=== PATIENT | female | born 1950 | race Two or more races ===

== ENCOUNTER 2021-12-21 20:50 | Inpatient (IN) | payer MEDICARE, OTHER ==
[~2021-12-21] VITALS: Ht 160 cm; Wt 103.4 kg
--- NOTE | 2021-12-21 20:55 | NUR ---
SAIRA Kelly FROM HOME FOR C/O "I FEEL TIRED". PATIENT BROUGHT TO BED 07 AWAITING MD MORALES. PATIENT PLACED ON MONITOR AND POX.
--- NOTE | 2021-12-21 21:09 | NUR ---
CYBER TRANSPORT SYSTEMS SPECIALIST AT PT'S BEDSIDE
--- NOTE | 2021-12-21 21:24 | NUR ---
[facility] [phone].
--- NOTE | 2021-12-21 21:29 | NUR ---
URINE COLLECTED AND SENT TO LAB
--- NOTE | 2021-12-21 21:29 | NUR ---
BLOOD COLLECTED AND SENT TO LAB
--- NOTE | 2021-12-21 21:30 | NUR ---
BS 107
--- NOTE | 2021-12-21 21:30 | NUR ---
COVID ANTIGEN SWAB DONE AND SENT TO LAB
--- NOTE | 2021-12-21 21:30 | NUR ---
LAC #20G S/L PATENT AND INTACT
--- NOTE | 2021-12-21 21:30 | NUR ---
EMT @ BEDSIDE FOR EKG
[2021-12-21 21:48] LABS: BASOPHILS % (AUTO) 0.6 % (0.0-2.0); HEMATOCRIT 47 % (33-45); HEMOGLOBIN 14.6 g/dL (11.5-14.8); LYMPHOCYTES % (AUTO) 33.4 % (20.0-44.0); MEAN CORPUSCULAR HGB CONC 31 g/dl (31.0-36.0); MEAN CORPUSCULAR VOLUME 87 fL (82-100); MONOCYTES # (AUTO) 0.3 K/uL (0.1-1.30); MONOCYTES % (AUTO) 4.9 % (2.0-12.0); NEUTROPHILS # (AUTO) 3.6 K/uL (1.8-8.9); NEUTROPHILS % (AUTO) 60.1 % (43.0-81.0); PLATELET COUNT (AUTO) 226 K/uL (150-450); RED BLOOD CELL COUNT(AUTO) 5.41 MIL/uL (4.0-5.2); WHITE BLOOD COUNT (AUTO) 6.1 K/uL (4.3-11.0)
[2021-12-21 22:16] LABS: ALANINE AMINOTRANSFERASE 40 U/L (12-78); ALBUMIN 3.7 g/dL (3.4-5.0); ALKALINE PHOSPHATASE 92 U/L (46-116); ASPARTATE AMINOTRANSFERASE 38 U/L (15-37); BILIRUBIN,DIRECT 0.4 mg/dL (0.0-0.2); BILIRUBIN,TOTAL 1.3 mg/dL (0.2-1.0); CALCIUM, SERUM 8.7 mg/dL (8.5-10.1); CARBON DIOXIDE 27 mmol/L (21-32); CHLORIDE 101 mmol/L (98-107); CREATININE 1.2 mg/dL (0.6-1.3); GLUCOSE 106 mg/dL (74-106); POTASSIUM 3.2 mmol/L (3.5-5.1); SODIUM SERUM 137 mmol/L (136-145); TOTAL PROTEIN, SERUM 8.1 g/dL (6.4-8.2); UREA NITROGEN, BLOOD 17 mg/dL (7-18)
--- NOTE | 2021-12-21 22:26 | NUR ---
YASH [phone]
--- NOTE | 2021-12-21 22:29 | NUR ---
TROPONIN 2074; NOTIFIED DR. MASON POLO
--- NOTE | 2021-12-21 22:35 | NUR ---
DR. CUEVAS SPEAKING TO DR. LEE
--- NOTE | 2021-12-21 22:37 | NUR ---
[facility] PAGED
--- NOTE | 2021-12-21 22:39 | NUR ---
UPDATED YSAH (NIECE) ON PT'S CONDITION. PER YASH PT DOES NOT TAKE ANY HOME MEDICATIONS
[2021-12-21] MEDS ORDERED: ASPIRIN EC 325 MG TABLET.DR PO ONE (22:43)
--- NOTE | 2021-12-21 22:53 | NUR ---
ADLS DONE. PT AMBULATORY TO RESTROOM WITH ASSIST
[2021-12-21] MEDS ORDERED: ASPIRIN 81 MG TAB.CHEW PO ONE (23:00)
[2021-12-21] MEDS ORDERED: ENOXAPARIN SODIUM 80 MG/0.8 ML DISP.SYRIN SQ ONE (23:00)
--- NOTE | 2021-12-21 23:05 | NUR ---
MRSA SWAB COLLECTED AND SENT TO LAB. PATIENT'S BELONGINGS LIST DONE.
--- NOTE | 2021-12-21 23:29 | NUR ---
BED ASSIGNMENT: 310-1
--- NOTE | 2021-12-21 23:36 | NUR ---
REPORT GIVEN TO DEANDRE Waddell RN FOR DONTRELL
--- NOTE | 2021-12-21 23:55 | NUR ---
PT TRANSFERRED TO 3W VIA ACLS PROTOCOL. VSS. PT TOLERATED TRANSFER WELL. YASH GRIGGS) AWARE.
--- NOTE | 2021-12-21 23:57 | NUR ---
RN notes Received a critical lab from preston Silva. Pt's Troponin I is 1878. Primary nurse is aware and informed.
[2021-12-22] VITALS (10 sets, daily range): BP systolic 98–145; BP diastolic 50–80
[2021-12-22] MEDS ORDERED: Z GUARD REMEDY 4 OZ OINT TP PRN
[2021-12-22] MEDS ORDERED: ACETAMINOPHEN 325 MG TABLET PO PRN
[2021-12-22] MEDS ORDERED: MAG HYDROX/AL HYDROX/SIMETH 30 ML UDC PO PRN
[2021-12-22] MEDS ORDERED: MORPHINE SULFATE INJ 2 MG/ML DISP.SYRIN IV PRN
[2021-12-22] MEDS ORDERED: MAGNESIUM HYDROXIDE 30 ML UDC PO PRN
[2021-12-22] MEDS ORDERED: HYDROCODONE/APAP 5/325MG TABLET PO PRN
[2021-12-22] MEDS ORDERED: ONDANSETRON HCL/PF 4 MG/2 ML VIAL IVP PRN
[2021-12-22] MEDS ORDERED: ZOLPIDEM TARTRATE 5 MG TABLET PO PRN
--- NOTE | 2021-12-22 | NUR ---
AUTOMATION TEST DEVELOPER ADMITTING NOTES PT ARRIVED TO UNIT VIA GURNEY PT ABLE TO AMBULATE TO BED PT NOTED WITH STEADY GAIT PT PROVIDED WITH STAND BY ASSIST. PT A/O X3 ABLE TO MAKE NEEDS KNOWN.ON ROOM AIR TOLERATING WELL. NO PAIN REPORTED OR NOTED AT THIS TIME NO RESPIRATORY DISTRESS. PT NOTED WITH IV ACCESS ON THE L ARM 20G SL. PT BELONGINGS CHECKED AND SIGNED FOR. PT PLACED ON TELE MONITOR CURRENTLY READING ST 100S. PT REFUSED SKIN ASSESSMENT AT THIS TIME. PER PT SHE DOES NOT HAVE WOUNDS OR SCARS. UPPER EXTREMITIES AND FEET DID NOT NOTE ANY SKIN DISCOLORATION OR WOUNDS. PT ORIENTED TO UNIT AND ROOM CALL LIGHT WITHIN REACH. TBLE WITHIN REACH. SNACKS AND WATER PROVIDED AT THIS TIME. WILL CONTINUE TO MONITOR.
--- NOTE | 2021-12-22 06:40 | NUR ---
METAL ANNEALER CLOSING NOTES PT A/O X3 ABLE TO MAKE NEEDS KNOWN.ON ROOM AIR TOLERATING WELL. NO PAIN REPORTED OR NOTED AT THIS TIME NO RESPIRATORY DISTRESS. PT NOTED WITH IV ACCESS ON THE L ARM 20G SL. PT PLACED ON TELE MONITOR CURRENTLY READING ST 100S. PT REFUSED SKIN ASSESSMENT AT THIS TIME. PER PT SHE DOES NOT HAVE WOUNDS OR SCARS. UPPER EXTREMITIES AND FEET DID NOT NOTE ANY SKIN DISCOLORATION OR WOUNDS. PT ORIENTED TO UNIT AND ROOM CALL LIGHT WITHIN REACH.TABLE WITHIN REACH. WILL ENDORSE CRAE TO DAY SHIFT NURSE.
[2021-12-22 07:32] LABS: BASOPHILS % (AUTO) 0.4 % (0.0-2.0); EOSINOPHILS % (AUTO) 0.9 % (0.0-6.0); HEMATOCRIT 43 % (33-45); HEMOGLOBIN 13.7 g/dL (11.5-14.8); LYMPHOCYTES # (AUTO) 1.3 K/uL (0.8-4.8); LYMPHOCYTES % (AUTO) 28.9 % (20.0-44.0); MEAN CORPUSCULAR HGB CONC 32 g/dl (31.0-36.0); MEAN CORPUSCULAR VOLUME 85 fL (82-100); MONOCYTES # (AUTO) 0.3 K/uL (0.1-1.30); MONOCYTES % (AUTO) 5.8 % (2.0-12.0); PLATELET COUNT (AUTO) 204 K/uL (150-450); RED BLOOD CELL COUNT(AUTO) 5.03 MIL/uL (4.0-5.2); WHITE BLOOD COUNT (AUTO) 4.7 K/uL (4.3-11.0)
--- NOTE | 2021-12-22 07:37 | NUR ---
RN OPENING NOTES PATIENT AWAKE, A/O X3. NO S/S OF PAIN NOTED AT THIS TIME. PATIENT ON ROOM AIR, NO DISTRESS OR SHORTNESS OF BREATH. IV ACCESS LAC #20G, INTACT, PATENT AND FLUSHING WELL. PATIENT ON EXTERNAL BOAT CARPENTER MECHANIC CURRENT READING OF S.T. AND HR OF 100. FALL AND SAFETY MEASURES IN PLACE, BED ALARM ON, BED IN LOW AND LOCK POSITION, CALL LIGHT AND TABLE WITHIN EASY REACH, SIDE RAILS UP X2. WILL CONTINUE TO MONITOR.
[2021-12-22 07:55] LABS: ALBUMIN 3.3 g/dL (3.4-5.0); BILIRUBIN,DIRECT 0.5 mg/dL (0.0-0.2); BILIRUBIN,TOTAL 1.5 mg/dL (0.2-1.0); CALCIUM, SERUM 8.6 mg/dL (8.5-10.1); CREATININE 1.1 mg/dL (0.6-1.3); MAGNESIUM 1.8 mg/dL (1.8-2.4); PHOSPHORUS 2.6 mg/dL (2.5-4.9); POTASSIUM 3.4 mmol/L (3.5-5.1); TOTAL PROTEIN, SERUM 7.3 g/dL (6.4-8.2)
[2021-12-22 09:17] LABS: THYROID STIMULATING HORMONE 2.167 uIU/mL (0.358-3.74)
[2021-12-22] MEDS: ENOXAPARIN SODIUM 100 MG/ML DISP.SYRIN SQ SCH ×2 (09:19→21:07)
[2021-12-22] MEDS: ATORVASTATIN 10 MG TABLET PO SCH (09:20)
[2021-12-22] MEDS: ASPIRIN 81 MG TAB.CHEW PO SCH (09:20)
[2021-12-22] MEDS: PANTOPRAZOLE 40 MG TABLET.DR PO SCH (09:21)
[2021-12-22] MEDS ORDERED: IV NS 0.9% 500 ML IV PRN (09:30)
[2021-12-22] MEDS ORDERED: METOPROLOL TARTRATE INJ 5 MG/5 ML AMPUL IVP PRN (09:30)
[2021-12-22] MEDS ORDERED: NITROGLYCERIN 0.4 MG/TAB BOTTLE SL ONE (09:30)
[2021-12-22] MEDS ORDERED: IV NS 0.9% 250 ML IV ONE (09:48)
[2021-12-22] MEDS ORDERED: CT SWABBABLE VALVE TRANS SET 1 EA INFUS.SET MC ONE (09:48)
[2021-12-22] MEDS ORDERED: IOHEXOL-350 100 ML VIAL IV ONE (09:48)
[2021-12-22] MEDS ORDERED: METOPROLOL TARTRATE INJ 5 MG/5 ML AMPUL ONE (10:10)
[2021-12-22] MEDS ORDERED: NITROGLYCERIN 0.4 MG/TAB BOTTLE ONE (10:11)
--- NOTE | 2021-12-22 10:44 | NUR ---
Patient refused CTCA exam at the moment. Pt, states that she doesn't feel good and doesn't want to do the exam. pt unable to follow directions, hold breath for 15 seconds and has a hard time holding still. ITA Montes De Oca notified.
[2021-12-22] MEDS ORDERED: POTASSIUM CHLORIDE 20 MEQ TAB.PRT.SR PO SCH (11:30)
[2021-12-22] MEDS: METOPROLOL TARTRATE 50 MG TABLET PO SCH ×2 (11:46→17:32)
--- NOTE | 2021-12-22 18:40 | NUR ---
RN CLOSING NOTES PATIENT AWAKE, A/O X3. NO S/S OF PAIN NOTED AT THIS TIME. PATIENT ON ROOM AIR, NO DISTRESS OR SHORTNESS OF BREATH. IV ACCESS LAC #20G, INTACT, PATENT AND FLUSHING WELL. PATIENT ON EXTERNAL SOAP MIXER CURRENT READING OF S.R. AND HR OF 76. ALL SCHEDULE MEDS ADMINISTERED. FALL AND SAFETY MEASURES IN PLACE, BED ALARM ON, BED IN LOW AND LOCK POSITION, CALL LIGHT AND TABLE WITHIN EASY REACH, SIDE RAILS UP X2. WILL ENDORSE TO SENIOR PHP WEB DEVELOPER.
--- NOTE | 2021-12-22 19:30 | NUR ---
HEATING PLANT SUPERINTENDENT NOTED RECEIVED IN ROOM,SITTING ON BEDSIDE CHAIR,WATCHING TV PROGRAM,BREATHING EVEN AND UNLABORED,SALINE LOCK LEFT AC INTACT AND PATENT.INSTRUCTED NPO POST MIDNIGHT FOR CT ANGIO HEART WITH 3D IMAGES.CONSENT ON CHART,AMBULATE WITH STEADY GAIT.CALL LIGHT IN REACH,NEEDS ANTICIPATED.
[2021-12-23] VITALS: BP_SYST 100; BP_SYST 129; BP_DIAS 58; BP_DIAS 70
--- NOTE | 2021-12-23 | NUR ---
DIAMOND SIZER NOTES REPORTED BY LAB,TROPONIN LEVEL RE CHECK WAS 1954,INCREASED FROM 1857 YESTERDAY,RESULT RELAYED TO DR PETERSEN,NO FURTHER ORDER NOTED.
[2021-12-23 04:00] VITALS: BP 116/84
[2021-12-23 05:00] VITALS: BP 116/84
[2021-12-23] MEDS: METOPROLOL TARTRATE 50 MG TABLET PO SCH ×4 (05:56→17:22)
--- NOTE | 2021-12-23 06:39 | NUR ---
CABLE SWAGER NOTES IN ROOM SITTING ON EDGE OF BED,STAYS MOST ON THE NIGHT SITTING ON CHAIR IN FRONT OF HER ROOM,KEPT NPO GOING FOR CT HEART WITH 3 D IMAGINGSALINE LOCK REMAINS PATENT ON LEFT AC.IN NO ACUTE DISTRESS.
[2021-12-23 06:45] LABS: BASOPHILS % (AUTO) 0.4 % (0.0-2.0); EOSINOPHILS % (AUTO) 0.2 % (0.0-6.0); HEMATOCRIT 44 % (33-45); HEMOGLOBIN 13.9 g/dL (11.5-14.8); LYMPHOCYTES # (AUTO) 2.3 K/uL (0.8-4.8); LYMPHOCYTES % (AUTO) 43.2 % (20.0-44.0); MEAN CORPUSCULAR HGB CONC 32 g/dl (31.0-36.0); MEAN CORPUSCULAR VOLUME 86 fL (82-100); MONOCYTES # (AUTO) 0.3 K/uL (0.1-1.30); MONOCYTES % (AUTO) 4.7 % (2.0-12.0); NEUTROPHILS # (AUTO) 2.8 K/uL (1.8-8.9); NEUTROPHILS % (AUTO) 51.5 % (43.0-81.0); PLATELET COUNT (AUTO) 223 K/uL (150-450); RED BLOOD CELL COUNT(AUTO) 5.11 MIL/uL (4.0-5.2); WHITE BLOOD COUNT (AUTO) 5.4 K/uL (4.3-11.0)
[2021-12-23 07:06] LABS: CALCIUM, SERUM 9.1 mg/dL (8.5-10.1); CREATININE 1.7 mg/dL (0.6-1.3); POTASSIUM 4.9 mmol/L (3.5-5.1)
--- NOTE | 2021-12-23 07:33 | NUR ---
RN OPENING NOTES PATIENT AWAKE SITTING ON THE BED, A/O X3. NO S/S OF PAIN NOTED AT THIS TIME. PATIENT ON ROOM AIR, NO DISTRESS OR SHORTNESS OF BREATH. IV ACCESS LAC #20G, INTACT, PATENT AND FLUSHING WELL. PATIENT ON EXTERNAL CHEF DE PARTIE CURRENT READING OF S.R. WITH BBB AND HR OF 71. FALL AND SAFETY MEASURES IN PLACE, BED ALARM ON, BED IN LOW AND LOCK POSITION, CALL LIGHT AND TABLE WITHIN EASY REACH, SIDE RAILS UP X2. WILL CONTINUE TO MONITOR. Addendum: 12/23/21 at 1807 by Falguni Sánchez RN PATIENT ON EXTERNAL CHEF DE PARTIE CURRENT READING OF S.R. AND HR OF 71.
[2021-12-23 08:00] VITALS: BP 121/83
[2021-12-23] MEDS: ENOXAPARIN SODIUM 100 MG/ML DISP.SYRIN SQ SCH ×2 (09:14→22:11)
[2021-12-23] MEDS: PANTOPRAZOLE 40 MG TABLET.DR PO SCH (09:15)
[2021-12-23] MEDS: ATORVASTATIN 10 MG TABLET PO SCH (09:15)
[2021-12-23] MEDS: ASPIRIN 81 MG TAB.CHEW PO SCH (09:16)
--- NOTE | 2021-12-23 12:00 | NUR ---
RN NOTES REPORTED BY LAB,TROPONIN LEVEL RE-CHECK WAS 1930, DECREASED FROM 1954 YESTERDAY LAB RESULT.
--- NOTE | 2021-12-23 15:58 | NUR ---
RN NOTE PHARMACY CALLED, SINCE PATIENT RENAL FUNCTION WORSENING, PATIENT LOVENOX WILL BE ON HOLD AFTER TODAY 2100 DOSE, UNLESS DOCTOR INSTRUCT OTHERWISE. WILL FOLLOW UP. CHARGE NURSE AWARE.
[2021-12-23 16:00] VITALS: BP 107/76
--- NOTE | 2021-12-23 18:50 | NUR ---
RN CLOSING NOTES PATIENT AWAKE SITTING ON THE CHAIR NEXT TO HER BED, A/O X3. NO S/S OF PAIN NOTED AT THIS TIME. PATIENT ON ROOM AIR, NO DISTRESS OR SHORTNESS OF BREATH. IV ACCESS LAC #20G, INTACT, PATENT AND FLUSHING WELL. PATIENT ON EXTERNAL MANAGER INFORMATION CURRENT READING OF S.R. AND HR OF 92. PATIENT GOT A LIFEVEST TODAY IS IN HER ROOM NEXT TO THE BEDSIDE TABLE. FALL AND SAFETY MEASURES IN PLACE, BED ALARM ON, BED IN LOW AND LOCK POSITION, CALL LIGHT AND TABLE WITHIN EASY REACH, SIDE RAILS UP X2. WILL ENDORSE TO CLIENT SOLUTIONS SPECIALIST NURSE.
--- NOTE | 2021-12-23 19:35 | NUR ---
RN NOTES RECEIVED PATIENT SITTING ON THE EDGE OF THE BED, A/OX3, SR WITH 1ST DEGREE AV BLOCK HR-67, DENIES PAIN, NO SOB, CALL LIGHT WITHIN REACH, SIDERAILSUPX2, WILL CONTINUE TO MONITOR
[2021-12-23 20:00] VITALS: BP 114/74
[2021-12-24] VITALS: BP 115/52
--- NOTE | 2021-12-24 | NUR ---
RN NOTES PATIENT REFUSED TO LIE DOWN ON HER BED PREFER TO SLEEP SITTING ON THE EDGE OF THE BED, ASKED PATIENT TO MOVE IN THE MIDDLE SO SHE WILL NOT FALL.
[2021-12-24] MEDS: METOPROLOL TARTRATE 50 MG TABLET PO SCH ×4 (00:08→18:00)
[2021-12-24 04:00] VITALS: BP 106/51
--- NOTE | 2021-12-24 06:42 | NUR ---
RN NOTES AWAKE, DENIES PAIN, NO SOB, MORNING CARE RENDERED, CALL LIGHT WITHIN REACH, SIDERAILSUPX2, PT. NEEDS ATTENDED
[2021-12-24 06:47] LABS: BASOPHILS % (AUTO) 0.8 % (0.0-2.0); EOSINOPHILS % (AUTO) 0.3 % (0.0-6.0); HEMATOCRIT 50 % (33-45); HEMOGLOBIN 15.4 g/dL (11.5-14.8); LYMPHOCYTES % (AUTO) 39.3 % (20.0-44.0); MEAN CORPUSCULAR HGB CONC 31 g/dl (31.0-36.0); MEAN CORPUSCULAR VOLUME 88 fL (82-100); MONOCYTES # (AUTO) 0.2 K/uL (0.1-1.30); MONOCYTES % (AUTO) 3.3 % (2.0-12.0); NEUTROPHILS # (AUTO) 2.9 K/uL (1.8-8.9); NEUTROPHILS % (AUTO) 56.3 % (43.0-81.0); PLATELET COUNT (AUTO) 206 K/uL (150-450); RED BLOOD CELL COUNT(AUTO) 5.65 MIL/uL (4.0-5.2); WHITE BLOOD COUNT (AUTO) 5.1 K/uL (4.3-11.0)
--- NOTE | 2021-12-24 08:05 | NUR ---
MS RN OPENING NOTES RECEIVED PATIENT SITTING ON BEDSIDE. A/O X3. NOT IN APPARENT DISTRESS. NO C/O PAIN @ THIS TIME. TOLERATING ROOM AIR WELL. HAS LEFT AC IV ACCESS #20G AND SALINE LOCKED. SAFETY PRECAUTIONS IN PLACED. WILL CONTINUE PLAN OF CARE.
[2021-12-24] MEDS: ASPIRIN 81 MG TAB.CHEW PO SCH (08:27)
[2021-12-24] MEDS: ATORVASTATIN 10 MG TABLET PO SCH (08:27)
[2021-12-24] MEDS: PANTOPRAZOLE 40 MG TABLET.DR PO SCH (08:27)
[2021-12-24 08:29] VITALS: BP 107/73
[2021-12-24 09:47] LABS: ALBUMIN 3.6 g/dL (3.4-5.0); CALCIUM, SERUM 8.9 mg/dL (8.5-10.1); CREATININE 2.1 mg/dL (0.6-1.3); MAGNESIUM 2.3 mg/dL (1.8-2.4); POTASSIUM 5.3 mmol/L (3.5-5.1); TOTAL PROTEIN, SERUM 7.7 g/dL (6.4-8.2)
--- NOTE | 2021-12-24 10:00 | NUR ---
RADIO/TV TECHNICIAN NOTES SEEN AND EXAMINED BY DR. LEE. DISCUSSED PLAN OF CARE WITH PATIENT. MD AWARE OF LAB RESULTS.
--- NOTE | 2021-12-24 12:34 | NUR ---
HOOP RIVETING MACHINE OPERATOR HELPER NURSING NOTE HOLD BP MED, BP 105/74, PULSE 64. NO BP MED GIVEN IN THE AM.
[2021-12-24 12:42] VITALS: BP 105/74
[2021-12-24 16:48] VITALS: BP 92/50
--- NOTE | 2021-12-24 18:30 | NUR ---
CHIEF CLERK NOTES NOTIFIED MD ON BP TREND. HOLD BP MEDS DURING SHIFT.
--- NOTE | 2021-12-24 19:17 | NUR ---
CNC LATHE PROGRAMMER CLOSING NOTES PATIENT SITTING IN BED THROUGHOUT THE DAY, AMBULATORY. A/O X3. STABLE ON ROOM AIR. NO SOB OR . BOWEL MOVEMENT X1 FORMED. HAS LEFT ANTECUBITAL IV ACCESS AND SALINE LOCKED. FLUSHING, PATENT AND INTACT. ALL NEEDS ATTENDED. KEPT DRY AND COMFORTABLE. SAFETY PRECAUTIONS IN PLACED: BED LOW AND LOCKED, SIDE RAILS UP X2, CALL LIGHT WITHIN REACH.
--- NOTE | 2021-12-24 19:30 | NUR ---
SECURITY SYSTEMS SPECIALIST OPENING NOTES: RECEIVED PATIENT SITTING AT THE EDGE OF THE BED, AWAKE, A/O X4. NO S/S OF DISTRESS NOTED. NO COMPLAIN OF PAIN. CALL LIGHT WITHIN REACH. BED IN LOWEST AND LOCKED POSITION. PER REPORTS FROM PREVIOUS SHIFT RN PATIENT IS AMBULATORY WITH STEADY GAIT. OFFERED ASSISTANCE IF SHE WANTS TO LIE DOWN IN BED, DECLINED, PATIENT STATES THAT SHE PREFERS TO SIT FOR NOW AND SHE WILL LIE DOWN LATER TONIGHT. SHOWED TO THE PATIENT THE BED CONTROL FOR HEAD AND LEGS POSITIONING, PATIENT VERBALIZED UNDERSTANDING. ON TELE MONITOR WITH SINUS 64 WITH BBB.
[2021-12-24 20:00] VITALS: BP 109/46
[2021-12-24] MEDS ORDERED: ENOXAPARIN SODIUM 100 MG/ML DISP.SYRIN SQ SCH (21:00)
[2021-12-25] VITALS: BP 147/75
[2021-12-25] MEDS: METOPROLOL TARTRATE 50 MG TABLET PO SCH ×4 (00:47→17:22)
[2021-12-25 04:00] VITALS: BP 137/93
[2021-12-25 06:44] LABS: BASOPHILS % (AUTO) 0.2 % (0.0-2.0); EOSINOPHILS % (AUTO) 0.3 % (0.0-6.0); HEMATOCRIT 45 % (33-45); HEMOGLOBIN 14.3 g/dL (11.5-14.8); MEAN CORPUSCULAR HGB CONC 32 g/dl (31.0-36.0); MEAN CORPUSCULAR VOLUME 85 fL (82-100); MONOCYTES # (AUTO) 0.3 K/uL (0.1-1.30); MONOCYTES % (AUTO) 4.4 % (2.0-12.0); NEUTROPHILS # (AUTO) 3.5 K/uL (1.8-8.9); NEUTROPHILS % (AUTO) 60.1 % (43.0-81.0); PLATELET COUNT (AUTO) 254 K/uL (150-450); RED BLOOD CELL COUNT(AUTO) 5.26 MIL/uL (4.0-5.2); WHITE BLOOD COUNT (AUTO) 5.8 K/uL (4.3-11.0)
[2021-12-25 07:08] LABS: CALCIUM, SERUM 8.9 mg/dL (8.5-10.1)
--- NOTE | 2021-12-25 07:20 | NUR ---
COAL GRADER OPENING NOTES RECEIVED PATIENT SITTING AT THE EDGE OF THE BED, AWAKE, A/O X4, NO SIGNS OF ACUTE DISTRESS NOTED. ON ROOM AIR, NO SOB NOTED. DENIES ANY PAIN OR DISCOMFORT. ON TELE MONITOR SHOWING SR @60, NO C/O CARDIAC DISTRESS. WITH IV ACCESS ON LEFT ANTECUBITAL #20G, INTACT AND PATENT, SALINE LOCKED. SAFETY MEASURES IN PLACE. BED IN LOWEST LOCKED POSITION, SR UP X1, CALL LIGHT PLACED WITHIN EASY REACH. WILL CONTINUE TO MONITOR PATIENT.
[2021-12-25 08:00] VITALS: BP 138/54
[2021-12-25] MEDS: PANTOPRAZOLE 40 MG TABLET.DR PO SCH (08:25)
[2021-12-25] MEDS: ASPIRIN 81 MG TAB.CHEW PO SCH (08:25)
[2021-12-25] MEDS: HEPARIN SODIUM, PORCINE 5000 UNITS/1 ML VIAL SQ SCH ×2 (08:25→21:37)
[2021-12-25] MEDS: ATORVASTATIN 10 MG TABLET PO SCH (08:25)
[2021-12-25 12:00] VITALS: BP 104/59
[2021-12-25 16:00] VITALS: BP 110/54
--- NOTE | 2021-12-25 18:49 | NUR ---
DIET THERAPIST CLOSING NOTES PATIENT SITTING IN THE CHAIR. ENCOURAGED TO GO BACK TO BED BUT PREFERS TO SIT UP IN THE CHAIR AT THIS TIME. AWAKE, A/O X4, NO SIGNS OF ACUTE DISTRESS NOTED. REMAINS ON ROOM AIR, NO SOB NOTED. DENIES ANY PAIN OR DISCOMFORT. CONTINUE ON TELE MONITOR SHOWING SR, HR @65, NO SIGNS OF CARDIAC DISTRESS. IV ACCESS ON LEFT ANTECUBITAL #20G, INTACT AND PATENT, SALINE LOCKED. SAFETY MEASURES MAINTAINED, BED IN LOWEST LOCKED POSITION, SR UP X1, CALL LIGHT PLACED WITHIN EASY REACH. WILL ENDORSE TO NEXT SHIFT.
--- NOTE | 2021-12-25 19:30 | NUR ---
COMBER SETTER NOTES RECEIVED SITTING ON EDGE OF BED,BREATHING REGULAR,NOT IN ANY FORM OF DISTRESS,AMBULATE WITH STEADY GAIT,SALINE LOCK LEFT AC INTACT AND PATENT.DENIES DISCOMFORTS AT THE MOMENT.CALL LIGHT IN REACH,NEEDS ANTICIPATED.
[2021-12-25 20:00] VITALS: BP 122/62
[2021-12-26] VITALS (7 sets, daily range): BP systolic 106–125; BP diastolic 65–92
[2021-12-26] MEDS: METOPROLOL TARTRATE 50 MG TABLET PO SCH ×4 (00:55→17:55)
--- NOTE | 2021-12-26 06:35 | NUR ---
ATMOSPHERIC SCIENTIST NOTES IN ROOM,SITTING ON BEDSIDE CHAIR THRU OUT SHIFT,ENCOURAGED TO GO BACK TO BED BUT REFUSED,ALL DUE MEDS ADMINISTERED.IN NO ACUTE DISTRESS.
[2021-12-26 06:55] LABS: BASOPHILS % (AUTO) 0.4 % (0.0-2.0); EOSINOPHILS % (AUTO) 0.6 % (0.0-6.0); HEMATOCRIT 46 % (33-45); HEMOGLOBIN 14.9 g/dL (11.5-14.8); LYMPHOCYTES # (AUTO) 2.5 K/uL (0.8-4.8); LYMPHOCYTES % (AUTO) 42.6 % (20.0-44.0); MEAN CORPUSCULAR HGB CONC 32 g/dl (31.0-36.0); MEAN CORPUSCULAR VOLUME 85 fL (82-100); MONOCYTES # (AUTO) 0.3 K/uL (0.1-1.30); MONOCYTES % (AUTO) 4.6 % (2.0-12.0); NEUTROPHILS % (AUTO) 51.8 % (43.0-81.0); PLATELET COUNT (AUTO) 253 K/uL (150-450); RED BLOOD CELL COUNT(AUTO) 5.42 MIL/uL (4.0-5.2); WHITE BLOOD COUNT (AUTO) 5.8 K/uL (4.3-11.0)
[2021-12-26 07:14] LABS: CALCIUM, SERUM 8.6 mg/dL (8.5-10.1); CREATININE 1.8 mg/dL (0.6-1.3)
--- NOTE | 2021-12-26 07:24 | NUR ---
INTERNAL MEDICINE NURSE OPENING NOTES RECEIVED PATIENT SITTING ON THE CHAIR, AWAKE, A/O X4, NO SIGNS OF ACUTE DISTRESS NOTED. STABLE ON ROOM AIR, NO SOB NOTED. DENIES ANY PAIN OR DISCOMFORT. ON TELE MONITOR CURRENTLY SHOWING SB @59, NO SIGNS OF CARDIAC DISTRESS. WITH IV ACCESS ON LEFT ANTECUBITAL #20G, INTACT AND PATENT, SALINE LOCKED. SAFETY MEASURES IN PLACE. BED IN LOWEST LOCKED POSITION, SR UP, CALL LIGHT PLACED WITHIN EASY REACH. WILL CONTINUE TO MONITOR PATIENT.
[2021-12-26] MEDS: PANTOPRAZOLE 40 MG TABLET.DR PO SCH (08:39)
[2021-12-26] MEDS: ATORVASTATIN 10 MG TABLET PO SCH (08:39)
[2021-12-26] MEDS: ASPIRIN 81 MG TAB.CHEW PO SCH (08:39)
[2021-12-26] MEDS: HEPARIN SODIUM, PORCINE 5000 UNITS/1 ML VIAL SQ SCH ×2 (08:41→20:46)
--- NOTE | 2021-12-26 18:50 | NUR ---
CERTIFIED HEARING INSTRUMENT DISPENSER CLOSING NOTES PATIENT SITTING AT THE DGE OF THE BED. AWAKE, A/O X4, NO SIGNS OF ACUTE DISTRESS NOTED. REMAINS ON ROOM AIR, NO SOB NOTED. DENIES ANY PAIN OR DISCOMFORT. CONTINUE ON TELE MONITOR SHOWING SR/SB, HR @56, NO SIGNS OF CARDIAC DISTRESS. IV ACCESS ON LEFT ANTECUBITAL #20G, INTACT AND PATENT, SALINE LOCKED. SAFETY MEASURES MAINTAINED, BED IN LOWEST LOCKED POSITION, SR UP X2, CALL LIGHT PLACED WITHIN EASY REACH. WILL ENDORSE TO NEXT SHIFT.
--- NOTE | 2021-12-26 19:50 | NUR ---
TIMBER SETTER NOTES RECEIVED SITTING ON EDGE OF BED,A/O X4,BREATHING REGULAR,NOT IN ANY FORM OF DISTRESS,AMBULATES WITH STEADY GAIT,SALINE LOCK LEFT AC INTACT AND PATENT.NOT IN NAY FORM OF DISTRESS.
[2021-12-27] VITALS: BP 106/65
[2021-12-27] MEDS: METOPROLOL TARTRATE 50 MG TABLET PO SCH ×4 (00:23→17:07)
[2021-12-27 04:00] VITALS: BP 121/61
--- NOTE | 2021-12-27 06:39 | NUR ---
MS RN NOTES REMAINS SITTING ON EDGE OF BED,REFUSED TO LAY DOWN ON BED,MED COMPLIANT,CTCA STILL PENDING TILL CREATININE OKAY.CALL LIGHT IN REACH,NEEDS ATTENDED.
--- NOTE | 2021-12-27 07:29 | NUR ---
GRADER OPERATOR OPENING NOTES RECEIVED PATIENT SITTING ON THE CHAIR, AWAKE, A/O X4, NO SIGNS OF ACUTE DISTRESS NOTED. PATIENT IS BREATHING EVENLY AND NONLABORED STABLE ON ROOM AIR, NO SOB NOTED. DENIES ANY PAIN OR DISCOMFORT. ON TELE MONITOR CURRENTLY SHOWING. NO SIGNS OF CARDIAC DISTRESS. PATIENT NOTED WITH IV ACCESS ON LEFT ANTECUBITAL #20G, INTACT AND PATENT, SALINE LOCKED. SAFETY MEASURES IN PLACE. BED IN LOWEST LOCKED POSITION, SR UP, CALL LIGHT PLACED WITHIN EASY REACH. WILL CONTINUE TO MONITOR
[2021-12-27 08:09] VITALS: BP 117/74
[2021-12-27] MEDS: PANTOPRAZOLE 40 MG TABLET.DR PO SCH (08:13)
[2021-12-27] MEDS: ATORVASTATIN 10 MG TABLET PO SCH (08:13)
[2021-12-27] MEDS: ASPIRIN 81 MG TAB.CHEW PO SCH (08:13)
[2021-12-27] MEDS: HEPARIN SODIUM, PORCINE 5000 UNITS/1 ML VIAL SQ SCH ×2 (08:15→21:11)
[2021-12-27 12:35] LABS: CREATININE 1.6 mg/dL (0.6-1.3); POTASSIUM 4.7 mmol/L (3.5-5.1)
[2021-12-27 12:43] LABS: BASOPHILS % (AUTO) 0.1 % (0.0-2.0); EOSINOPHILS % (AUTO) 0.2 % (0.0-6.0); HEMATOCRIT 44 % (33-45); HEMOGLOBIN 13.9 g/dL (11.5-14.8); LYMPHOCYTES # (AUTO) 1.8 K/uL (0.8-4.8); LYMPHOCYTES % (AUTO) 36.1 % (20.0-44.0); MEAN CORPUSCULAR HGB CONC 32 g/dl (31.0-36.0); MEAN CORPUSCULAR VOLUME 85 fL (82-100); MONOCYTES # (AUTO) 0.3 K/uL (0.1-1.30); MONOCYTES % (AUTO) 6.3 % (2.0-12.0); NEUTROPHILS # (AUTO) 2.9 K/uL (1.8-8.9); NEUTROPHILS % (AUTO) 57.3 % (43.0-81.0); PLATELET COUNT (AUTO) 219 K/uL (150-450); RED BLOOD CELL COUNT(AUTO) 5.14 MIL/uL (4.0-5.2)
[2021-12-27 16:01] VITALS: BP 116/72
--- NOTE | 2021-12-27 19:14 | NUR ---
received sitting in a chair at the bedside alert and orientated X4 smiling moving here extremities room air
[2021-12-27 20:00] VITALS: BP 116/98
[2021-12-28] VITALS (7 sets, daily range): BP systolic 103–146; BP diastolic 54–106
[2021-12-28] MEDS: METOPROLOL TARTRATE 50 MG TABLET PO SCH ×4 (01:11→17:53)
--- NOTE | 2021-12-28 06:32 | NUR ---
CHIEF I DISPATCHER CLOSING NOTES PATIENT SITTING IN THE CHAIR. PATIENT AWAKE, A/O X4, NO SIGNS OF ACUTE DISTRESS NOTED. PATIENT IS BREATHING EVENLY AND NONLABORED ON ROOM AIR, NO SOB NOTED. DENIES ANY PAIN OR DISCOMFORT. CONTINUE ON TELE MONITOR SHOWING SR. NO SIGNS OF CARDIAC DISTRESS. IV ACCESS ON LEFT ANTECUBITAL #20G, INTACT AND PATENT, SALINE LOCKED. ALL MEDICATIONS GIVEN ORDERED SAFETY MEASURES MAINTAINED, BED IN LOWEST LOCKED POSITION, SR UP X1, CALL LIGHT PLACED WITHIN EASY REACH. WILL ENDORSE TO NEXT SHIFT.
[2021-12-28] MEDS: ASPIRIN 81 MG TAB.CHEW PO SCH (08:39)
[2021-12-28] MEDS: PANTOPRAZOLE 40 MG TABLET.DR PO SCH (08:39)
[2021-12-28] MEDS: ATORVASTATIN 10 MG TABLET PO SCH (08:39)
[2021-12-28] MEDS: HEPARIN SODIUM, PORCINE 5000 UNITS/1 ML VIAL SQ SCH ×2 (08:40→21:36)
--- NOTE | 2021-12-28 10:08 | NUR ---
RN NOTES CONSENT FORM SIGNED BY PATIENT FOR CT ANGIO PROCEDURE; PLACED IN THE CHART.
[2021-12-28 10:25] LABS: CALCIUM, SERUM 8.9 mg/dL (8.5-10.1); CREATININE 1.6 mg/dL (0.6-1.3); POTASSIUM 5.5 mmol/L (3.5-5.1)
[2021-12-28 11:33] LABS: BASOPHILS % (AUTO) 0.6 % (0.0-2.0); EOSINOPHILS % (AUTO) 0.2 % (0.0-6.0); HEMATOCRIT 45 % (33-45); LYMPHOCYTES # (AUTO) 1.9 K/uL (0.8-4.8); LYMPHOCYTES % (AUTO) 34.1 % (20.0-44.0); MEAN CORPUSCULAR HGB CONC 32 g/dl (31.0-36.0); MEAN CORPUSCULAR VOLUME 85 fL (82-100); MONOCYTES # (AUTO) 0.3 K/uL (0.1-1.30); NEUTROPHILS # (AUTO) 3.2 K/uL (1.8-8.9); NEUTROPHILS % (AUTO) 59.1 % (43.0-81.0); PLATELET COUNT (AUTO) 226 K/uL (150-450); RED BLOOD CELL COUNT(AUTO) 5.22 MIL/uL (4.0-5.2); WHITE BLOOD COUNT (AUTO) 5.4 K/uL (4.3-11.0)
[2021-12-28] MEDS ORDERED: IOHEXOL-350 100 ML VIAL IV ONE (17:04)
[2021-12-28] MEDS ORDERED: IV NS 0.9% 0 ML IV ONE (17:04)
--- NOTE | 2021-12-28 17:15 | NUR ---
RN NOTES DR. LEE MADE AWARE THAT PATIENT CONSENTED FOR CTCA PROCEDURE BUT DID NOT WANT TO GO PHYSICALLY TO RADIOLOGY. JUANITO FROM RADIOLOGY CAME BY EARLIER TO SPEAK W/ PATIENT BUT PATIENT STATED THAT SHE JUST WANTS TO BE LEFT ALONE.
--- NOTE | 2021-12-28 17:51 | NUR ---
RN NOTES RECEIVED CALL FROM ANNA CONWAY TO GIVE METOPROLOL DOSE. WILL ATTEMPT TO BRING PATIENT DOWN FOR CTCA TODAY.
--- NOTE | 2021-12-28 18:25 | NUR ---
RN NOTES JUANITO FROM RADIOLOGY CAME BY TO SUPERVISOR DIALS PATIENT FOR CTCA BUT PATIENT REFUSED TO GO, STATING "IN THE MORNING". CHARGE NURSE AWARE.
--- NOTE | 2021-12-28 18:28 | NUR ---
ATTEMPED TO F/U UP WITH PT TO BRING DOWN FOR CCTA @ 1825. PT IS NOT FEELING WELL TODAY AND REFUSED. OFFERED ASSISTANCE TO MAKE THE PATIENT FEEL MORE COMFORTABLE DURING THE EXAM AND PT STATES THERE IS NOTHING WE CAN DO, TRY TOMORROW. WILL ATTEMPT EXAM AGAIN IN THE MORNING
--- NOTE | 2021-12-28 19:17 | NUR ---
RN NOTES BEDSIDE ENDORSEMENT GIVEN TO VIDEOGAME DESIGNER RN FOR DONTRELL.
--- NOTE | 2021-12-28 19:53 | NUR ---
received alert and orientated ambulated back to bed with the assist of 1 nurse at side steady on her feet back to bed
[2021-12-29] MEDS: METOPROLOL TARTRATE 50 MG TABLET PO SCH ×4 (00:03→17:17)
[2021-12-29 04:00] VITALS: BP 155/100
[2021-12-29 06:54] LABS: BASOPHILS % (AUTO) 0.3 % (0.0-2.0); EOSINOPHILS % (AUTO) 0.3 % (0.0-6.0); HEMATOCRIT 45 % (33-45); HEMOGLOBIN 14.6 g/dL (11.5-14.8); LYMPHOCYTES # (AUTO) 1.5 K/uL (0.8-4.8); LYMPHOCYTES % (AUTO) 23.5 % (20.0-44.0); MEAN CORPUSCULAR HGB CONC 32 g/dl (31.0-36.0); MEAN CORPUSCULAR VOLUME 84 fL (82-100); MONOCYTES # (AUTO) 0.3 K/uL (0.1-1.30); MONOCYTES % (AUTO) 4.2 % (2.0-12.0); NEUTROPHILS # (AUTO) 4.7 K/uL (1.8-8.9); NEUTROPHILS % (AUTO) 71.7 % (43.0-81.0); PLATELET COUNT (AUTO) 230 K/uL (150-450); RED BLOOD CELL COUNT(AUTO) 5.38 MIL/uL (4.0-5.2); WHITE BLOOD COUNT (AUTO) 6.5 K/uL (4.3-11.0)
[2021-12-29 07:26] LABS: CALCIUM, SERUM 9.2 mg/dL (8.5-10.1); CREATININE 1.6 mg/dL (0.6-1.3); POTASSIUM 5.5 mmol/L (3.5-5.1)
[2021-12-29 08:00] VITALS: BP 135/63
[2021-12-29] MEDS: PANTOPRAZOLE 40 MG TABLET.DR PO SCH (09:33)
[2021-12-29] MEDS: ATORVASTATIN 10 MG TABLET PO SCH (09:34)
[2021-12-29] MEDS: ASPIRIN 81 MG TAB.CHEW PO SCH (09:34)
[2021-12-29] MEDS: HEPARIN SODIUM, PORCINE 5000 UNITS/1 ML VIAL SQ SCH ×2 (09:35→21:02)
--- NOTE | 2021-12-29 10:55 | NUR ---
RN NOTES FORTINO AT BEDSIDE W/ PATIENT AND INTERVIEWED FOR CTCA PROCEDURE. PATIENT IS VERBALLY RESPONSIVE BUT UNABLE TO FOLLOW COMPLETELY W/ PROMPTS NECESSARY FOR PROCEDURE. NOT A GOOD CANDIDATE FOR PROCEDURE.
--- NOTE | 2021-12-29 11:03 | NUR ---
PT UNABLE TO FOLLOW BREATHING COMMANDS. ASSCESSED PT WITH NURSING SUP. PT CAN NOT HOLD BREATHE FOR MORE THAN THREE SECONDS
--- NOTE | 2021-12-29 11:12 | NUR ---
RN NOTES CHARGE NURSE AWARE OF PATIENT'S INABILITY TO FOLLOW CTCA PROCEDURE PROMPTS. DR. LEE MADE AWARE WELL, ACKNOWLEDGED MESSAGE.
[2021-12-29 12:00] VITALS: BP 107/76
--- NOTE | 2021-12-29 14:30 | NUR ---
RN NOTES SPOKE W/ PATIENT'S NIECE, YASH ([phone]), AND MADE AWARE OF PATIENT BEING UNABLE TO DO THE CTCA PROCEDURE PATIENT IS NOT ABLE TO FOLLOW CTCA PROMPTS COMPLETELY. EXPLAINED TO NIECE THAT THE TEST/RESULT WOULD BE INCONCLUSIVE/INACCURATE.
[2021-12-29 16:00] VITALS: BP 113/73
--- NOTE | 2021-12-29 17:51 | NUR ---
RN NOTES RECEIVED CALL FROM PATIENT'S NEIGHBOR, SHAWN GARCIA ([phone]), AND WAS INQUIRING ABOUT PATIENT'S STATUS. INFORMED THE NEIGHBOR THAT ALVINO FIGUEREDO, IS THE RESPONSIBLE LIBERTARIAN FOR PATIENT AND THE SPECIFIC MEDICAL INFORMATION CAN ONLY BE RELEASED W/ HER PERMISSION. NEIGHBOR WAS DIRECTED TO VENEER CUTTER FOR INQUIRIES ABOUT OBTAINING HEALTH INFORMATION ABOUT PATIENT AND ABOUT RENT ISSUES. NEIGHBOR WILL ALSO CALL YASH FOR CONFIRMATION.
--- NOTE | 2021-12-29 19:15 | NUR ---
REPOSSESSION AGENT OPENING NOTES RECEIVED PATIENT LAYING AWAKE IN BED. A/O X 3-4. PATIENT WITH REGULAR AND UNLABORED BREATHING ON ROOM AIR TOLERATED WELL. NO SIGNS AND SYMPTOMS OF DISTRESS AT THIS TIME. NO COMPLAINS OF PAIN OR DISCOMFORT AT THIS TIME. PATIENT ON TELE MONITOR READING SR WITH FIRST DEGREE BLOCK BBB @ 79 BPM. IV ACCESS LAC G #20 SL. IV ACCESS PATENT AND INTACT. SAFETY PRECAUTIONS ENFORCED WITH BED LOCKED AND AT LOWEST POSITION. CALL LIGHT WITHIN REACH AT ALL TIMES. WILL CONTINUE TO MONITOR PATIENT.
[2021-12-29 20:00] VITALS: BP 129/89
[2021-12-29] MEDS ORDERED: SODIUM POLYSTYRENE SULF. PWD 15 GM UDC PO ONE (23:30)
[2021-12-30] VITALS: BP 118/72
[2021-12-30] MEDS: METOPROLOL TARTRATE 50 MG TABLET PO SCH ×4 (00:43→17:39)
[2021-12-30] MEDS ORDERED: SODIUM POLYSTYRENE SULFONATE 15 G/60 ML BOTTLE ONE (01:06)
[2021-12-30 04:00] VITALS: BP 131/66
--- NOTE | 2021-12-30 06:45 | NUR ---
VOLUNTEER PATIENT REPRESENTATIVE CLOSING NOTES PATIENT STILL LAYING AWAKE IN BED. A/O X 3-4. PATIENT WITH REGULAR AND UNLABORED BREATHING ON ROOM AIR TOLERATED WELL. NO SIGNS AND SYMPTOMS OF DISTRESS AT THIS TIME. NO COMPLAINS OF PAIN OR DISCOMFORT AT THIS TIME. PATIENT ON TELE MONITOR READING SR WITH FIRST DEGREE BLOCK BBB @ 80 BPM. IV ACCESS LAC G #20 SL. IV ACCESS PATENT AND INTACT. SAFETY PRECAUTIONS ENFORCED WITH BED LOCKED AND AT LOWEST POSITION. CALL LIGHT WITHIN REACH AT ALL TIMES. WILL ENDORSE CONTINUITY OF CARE TO DAY SHIFT NURSE.
[2021-12-30 07:21] LABS: CALCIUM, SERUM 8.6 mg/dL (8.5-10.1); CREATININE 1.6 mg/dL (0.6-1.3); POTASSIUM 4.7 mmol/L (3.5-5.1)
[2021-12-30 07:37] LABS: BASOPHILS % (AUTO) 0.2 % (0.0-2.0); EOSINOPHILS % (AUTO) 0.2 % (0.0-6.0); HEMATOCRIT 48 % (33-45); HEMOGLOBIN 15.2 g/dL (11.5-14.8); LYMPHOCYTES # (AUTO) 1.5 K/uL (0.8-4.8); LYMPHOCYTES % (AUTO) 21.4 % (20.0-44.0); MEAN CORPUSCULAR HGB CONC 32 g/dl (31.0-36.0); MEAN CORPUSCULAR VOLUME 85 fL (82-100); MONOCYTES # (AUTO) 0.3 K/uL (0.1-1.30); MONOCYTES % (AUTO) 4.8 % (2.0-12.0); NEUTROPHILS # (AUTO) 5.1 K/uL (1.8-8.9); NEUTROPHILS % (AUTO) 73.4 % (43.0-81.0); PLATELET COUNT (AUTO) 239 K/uL (150-450); RED BLOOD CELL COUNT(AUTO) 5.64 MIL/uL (4.0-5.2); WHITE BLOOD COUNT (AUTO) 6.9 K/uL (4.3-11.0)
[2021-12-30 08:00] VITALS: BP 112/65
--- NOTE | 2021-12-30 08:00 | NUR ---
RN OPENING NOTE PATIENT RECEIVED IN BED, AO X 3-4. IN NO ACUTE DISTRESS NOTED. RESPIRATORY EVEN AND UNLABORED ON ROOM AIR. SKIN IS WARM TO TOUCH, KEEP CLEAN/DRY, INTACT IV SITE. KEPT ELEVATED HOB FOR ENSURE AIRWAY AND ASPIRATION PRECAUTION, ALSO LOWEST POSITION OF THE BED, S/R UP X 2 FOR SAFETY. ALL SAFETY PRECAUTION APPLIED. CALL LIGHT WITHIN REACH, WILL CONTINUE TO MONITOR.
[2021-12-30] MEDS: ASPIRIN 81 MG TAB.CHEW PO SCH (08:19)
[2021-12-30] MEDS: ATORVASTATIN 10 MG TABLET PO SCH (08:19)
[2021-12-30] MEDS: PANTOPRAZOLE 40 MG TABLET.DR PO SCH (08:19)
--- NOTE | 2021-12-30 09:55 | NUR ---
Responsible Republican: JUAN DANIEL contacted the pt.'s nikal Marsh Cush [phone] who stated that she is the next of kin. Per Salma, the pt. has no souce, children. POA or conservator. Salma states she has been a responsible libertarian for this pt. when needed. JUAN DANIEL notified Dr. Montalvo and Dr. Orosco so they may call Salma. Salma stated she is available "at any time". JUAN DANIEL willbe available as needed.
[2021-12-30] MEDS: HEPARIN SODIUM, PORCINE 5000 UNITS/1 ML VIAL SQ SCH ×2 (11:05→20:34)
[2021-12-30 12:00] VITALS: BP 120/81
[2021-12-30 16:00] VITALS: BP 89/57
--- NOTE | 2021-12-30 19:08 | NUR ---
RN CLOSING NOTE PATENT IN BED, IN NO ACUTE DISTRESS OBSERVED. RESPIRATORY EVEN AND UNLABORED ON ROOM AIR. SKIN IS WARM TO TOUCH KEEP CLEAN/DRY, INTACT IV SITE. KEPT ELEVATE HOB FOR ASPIRATION PRECAUTION AND ENSURE AIRWAY, ALSO LOWEST POSITION OF THE BED FOR SAFETY. CALL LIGHT WITHIN REACH, WILL ENDORSE TO DISTRICT RECRUITER.
--- NOTE | 2021-12-30 19:35 | NUR ---
RN NOTES RECEIVED PATIENT AWAKE SITTING ON THE CHAIR, SR WITH 1ST DEGREE AV BLOCK HR-61, DENIES PAIN, NO SOB, CALL LIGHT WITHIN REACH, SIDERAILSUPX2, WILL CONTINUE TO MONITOR
[2021-12-30 20:00] VITALS: BP 119/76
--- NOTE | 2021-12-30 21:20 | NUR ---
RN NOTES DR. HANNAH CAME AND TALKED TO THE PATIENT AND ORDERED TRAZODONE TO BE STARTED TOMORROW
[2021-12-31] VITALS (7 sets, daily range): BP systolic 94–138; BP diastolic 53–94
[2021-12-31] MEDS: METOPROLOL TARTRATE 50 MG TABLET PO SCH ×4 (05:57→17:12)
--- NOTE | 2021-12-31 06:34 | NUR ---
RN NOTES AWAKE, MORNING CARE RENDERED, DENIES PAIN, NO SOB, MORNING CARE RENDERED, SIDERAILSUPX2, PT. NEEDS ATTENDED
[2021-12-31] MEDS: PANTOPRAZOLE 40 MG TABLET.DR PO SCH (07:32)
--- NOTE | 2021-12-31 07:39 | NUR ---
FIELD CHECKER OPENING NOTE RECEIVED PATIENT IN BED, AROUSABLE BY NAME TO A/O X 2, TOLERATING WELL ON ROOM AIR WITH NO S/S OF RESPIRATORY DISTRESS AT THIS TIME. L AC 20 G INTACT, CLEAN, AND FLUSHING WELL. HOB ELEVATED FOR ASPIRATION PRECAUTIONS. SAFETY MEASURES IN PLACE: BED IN LOWEST LOCKED POSITION, SIDE RAILS UP X 2, CALL LIGHT WITHIN REACH. PERFORATOR READING SINUS MELY 57. WILL CONTINUE TO MONITOR.
[2021-12-31] MEDS: ASPIRIN 81 MG TAB.CHEW PO SCH (09:04)
[2021-12-31] MEDS: HEPARIN SODIUM, PORCINE 5000 UNITS/1 ML VIAL SQ SCH ×2 (09:06→21:11)
[2021-12-31] MEDS: ATORVASTATIN 10 MG TABLET PO SCH (09:06)
[2021-12-31] MEDS ORDERED: TRAZODONE 50 MG TABLET PO PRN (09:30)
[2021-12-31] MEDS ORDERED: OLANZAPINE 2.5 MG TABLET PO PRN (09:30)
[2021-12-31] MEDS ORDERED: LORAZEPAM 1 MG TABLET PO PRN (09:30)
--- NOTE | 2021-12-31 10:00 | NUR ---
FINAL COAT SPRAYER NOTE MD WAS INFORMED THAT PATIENT AGAIN UNABLE TO HOLD BREATH TODAY TO PERFORM CTCA PROCEDURE. AWAITING ANY FURTHER ORDERS FROM MD.
[2021-12-31] MEDS: ENSURE ENLIVE 237 ML LIQUID (VANILLA) PO SCH (16:10)
--- NOTE | 2021-12-31 18:56 | NUR ---
STAINED GLASS JOINER CLOSING NOTES PATIENT LAYING IN BED A/O X 2, TOLERATING WELL ON ROOM AIR WITH NO S/S OF RESPIRATORY DISTRESS, PAIN, OR DISCOMFORT AT THIS TIME. L AC # 20 G SALINE LOCK CLEAN, INTACT AND FLUSHING WELL. SAFETY MEASURES IN PLACE: BED IN LOWEST LOCKED POSITION, SIDE RAILS UP X 2, CALL LIGHT WITHIN REACH. EXTERNAL MONITOR READING NSR 60. WILL ENDORSE TO LOGISTICIAN FOR DONTRELL.
--- NOTE | 2021-12-31 19:32 | NUR ---
RN OPENING NOTE RECEIVED PATIENT SITTING IN CHAIR, A/OX2-3. NO S/S OF APPARENT DISTRESS ON ROOM AIR. DENIES PAIN. TELE MONITOR READING SINUS 65 BPM. NO FLUIDS RUNNING AT THIS TIME. OPENED BOX OF LIFE VEST NOTED AT BED SIDE-- PATIENT REFUSED TO WEAR PER PATIENT "NO, IT IS OKAY" "I'LL WEAR IT TOMORROW" EVEN WITH PATIENT EDUCATION-- INSTEAD, PATIENT ORIENTED TO USED THE CALL LIGHT WHEN SHE FEELS DIZZY OR ANY LIGHTHEADEDNESS. PATIENT ACKNOWLEDGES RISKS AND UNDERSTANDING. WILL CONTINUE TO MONITOR AND FOLLOW PATIENT CARE PLAN.
[2021-12-31] MEDS ORDERED: TRAZODONE 50 MG TABLET PO SCH (22:00)
[2022-01-01] VITALS (8 sets, daily range): BP systolic 101–148; BP diastolic 52–84
[2022-01-01] MEDS: METOPROLOL TARTRATE 50 MG TABLET PO SCH ×5 (00:04→23:32)
--- NOTE | 2022-01-01 00:53 | NUR ---
rn note per pt. request given trazodone. made sure patient acknowledges to be in bed before given medication.
[2022-01-01 06:09] LABS: BASOPHILS # (AUTO) 0.1 K/uL (0.0-0.2); BASOPHILS % (AUTO) 1.4 % (0.0-2.0); HEMATOCRIT 43 % (33-45); HEMOGLOBIN 13.6 g/dL (11.5-14.8); LYMPHOCYTES # (AUTO) 0.8 K/uL (0.8-4.8); LYMPHOCYTES % (AUTO) 15.1 % (20.0-44.0); MEAN CORPUSCULAR HGB CONC 31 g/dl (31.0-36.0); MEAN CORPUSCULAR VOLUME 85 fL (82-100); MONOCYTES # (AUTO) 0.1 K/uL (0.1-1.30); MONOCYTES % (AUTO) 2.8 % (2.0-12.0); NEUTROPHILS # (AUTO) 4.1 K/uL (1.8-8.9); NEUTROPHILS % (AUTO) 79.7 % (43.0-81.0); PLATELET COUNT (AUTO) 191 K/uL (150-450); RED BLOOD CELL COUNT(AUTO) 5.07 MIL/uL (4.0-5.2); WHITE BLOOD COUNT (AUTO) 5.1 K/uL (4.3-11.0)
--- NOTE | 2022-01-01 07:17 | NUR ---
MOTION STUDY ENGINEER CLOSING NOTE PATIENT IN BED WITH EYES CLOSED, EASY TO AROUSE. NO S/S OF APPARENT DISTRESS ON ROOM AIR IN ROOM AIR WITH BED IN SEMI FOWLERS. DENIES PAIN. TELE MONITOR READING SB 58 BPM THIS AM. NO FLUIDS RUNNING AT THIS TIME. NEEDS ATTENDED. ALL SCHEDULED MEDICATIONS ADMINISTERED. REPORT GIVEN TO MICHAEL FOR CONTINUITY OF CARE.
--- NOTE | 2022-01-01 07:21 | NUR ---
RN OPENING NOTES Patient seen comfortably lying in bed, no apparent distress noted, respirations even and unlabored, no SOB, denies any pain or discomfort at this time, no grimacing. Call light left within reach, safety precautions in place, brakes locked, side rails up X 2, will monitor closely for any changes.
[2022-01-01] MEDS: ATORVASTATIN 10 MG TABLET PO SCH (08:05)
[2022-01-01] MEDS: ENSURE ENLIVE 237 ML LIQUID (VANILLA) PO SCH ×2 (08:05→17:18)
[2022-01-01] MEDS: ASPIRIN 81 MG TAB.CHEW PO SCH (08:05)
[2022-01-01] MEDS: ESCITALOPRAM OXALATE (10 MG) 10 MG TABLET PO SCH (08:05)
[2022-01-01] MEDS: HEPARIN SODIUM, PORCINE 5000 UNITS/1 ML VIAL SQ SCH (08:06)
[2022-01-01] MEDS: PANTOPRAZOLE 40 MG TABLET.DR PO SCH (08:09)
--- NOTE | 2022-01-01 18:24 | NUR ---
RN CLOSING NOTES Patient lying in bed, no apparent distress noted, respirations even and unlabored, no no shortness of breath, denies any pain or discomfort, no grimacing. All due medications given per MD order, tolerating well. Patient repositioned frequently, kept clean and dry, frequent visual check rendered, aspiration precautions observed at all times, all needs attended, safety precautions in place, brakes locked, side rails up X 2, call light left within reach will endorse to next shift for continuity of care.
--- NOTE | 2022-01-01 19:30 | NUR ---
BALLET TEACHER NOTES RECEIVED LYING ON BED THIS TIME,BREATHING REGULAR,NOT IN ANY FORM OF DISTRESS,TELE MONITOR IN PLACE,SR-SB AT TIMES,AWAITING CTCA OF HEART.SALINE LOCK LEFT AC INTACT AND PATENT.AMBULATE WITH STANDBY ASSIST.FALL RISK,BED ON LOWEST POSITION AND LOCKED.CALL LIGHT IN REACH,NEEDS ANTICIPATED.
[2022-01-01 21:48] LABS: CALCIUM, SERUM 8.9 mg/dL (8.5-10.1); CREATININE 1.3 mg/dL (0.6-1.3); POTASSIUM 4.9 mmol/L (3.5-5.1)
[2022-01-01] MEDS: FUROSEMIDE 20 MG/2 ML VIAL IV SCH (23:00)
[2022-01-02] VITALS: BP 109/70
[2022-01-02 04:00] VITALS: BP 108/61
[2022-01-02] MEDS: METOPROLOL TARTRATE 50 MG TABLET PO SCH ×4 (06:02→23:59)
--- NOTE | 2022-01-02 06:38 | NUR ---
UNIVERSITY EXTENSION SPECIALIST NOTES NO SIGNIFICANT CHANGE IN STATUS.SLEPT WITH INTERVALS,SIT ON CHAIR MOST OF THE NIGHT,CTCA TILL FURTHER NOTICE.
--- NOTE | 2022-01-02 07:45 | NUR ---
TELE/QUALITY ASSURANCE GROUP LEADER NOTES RECEIVED PATIENT SITTING IN THE CHAIR AT BEDSIDE, PATIENT IS ALERT AND ORIENTED X3, ABLE TO MAKE NEEDS KNOWN. STABLE ON ROOM AIR. AMBULATORY. NO DISCOMFORTS REPORTED AT THIS TIME. PATIENT ON TELEMONITOR ATTACHED WITH SR READING. IV ACCESS ON LEFT AC #20G IS PATENT AND INTACT ON SALINE LOCK. SAFETY MEASURES IN PLACED, BED LOCKED ON LOWEST POSITION, CALL LIGHT AND TABLE WITHIN REACH. WILL CONTINUE TO MONITOR.
[2022-01-02] MEDS: PANTOPRAZOLE 40 MG TABLET.DR PO SCH (08:29)
[2022-01-02] MEDS: ESCITALOPRAM OXALATE (10 MG) 10 MG TABLET PO SCH (08:30)
[2022-01-02] MEDS: ASPIRIN 81 MG TAB.CHEW PO SCH (08:30)
[2022-01-02] MEDS: FUROSEMIDE 20 MG/2 ML VIAL IV SCH (08:30)
[2022-01-02] MEDS: ATORVASTATIN 10 MG TABLET PO SCH (08:30)
[2022-01-02] MEDS: ENSURE ENLIVE 237 ML LIQUID (VANILLA) PO SCH ×2 (08:30→17:18)
--- NOTE | 2022-01-02 12:19 | NUR ---
WITHHELD METOPROLOL 50MG PO AT 12NOON DUE TO LOW BP OF 100/67. WILL MONITOR PATIENT.
[2022-01-02 16:00] VITALS: BP 103/66
--- NOTE | 2022-01-02 17:19 | NUR ---
WITHHELD METOPROLOL 50MG PO DUE TO LOW BP OF 103/66. WILL CONTINUE TO MONITOR.
--- NOTE | 2022-01-02 19:18 | NUR ---
TELE/RN CLOSING NOTES PATIENT SITTING IN THE CHAIR AT BEDSIDE, PATIENT IS ALERT AND ORIENTED X3, ABLE TO MAKE NEEDS KNOWN. STABLE ON ROOM AIR. AMBULATORY. NO DISCOMFORTS REPORTED AT THIS TIME. PATIENT ON TELEMONITOR ATTACHED WITH SR READING. IV ACCESS ON LEFT AC #20G IS PATENT AND INTACT ON SALINE LOCK. ALL NEEDS MET. KEPT PATIENT COMFORTABLE ALL THROUGHOUT THE SHIFT. SAFETY MEASURES IN PLACED, BED LOCKED ON LOWEST POSITION, CALL LIGHT AND TABLE WITHIN REACH. WILL ENDORSE TO THE NEXT SHIFT FOR DONTRELL.
--- NOTE | 2022-01-02 19:29 | NUR ---
RN OPENING NOTES RECEIVED PT SITTING IN CHAIR, AWAKE. AOx3-4, ABLE TO MAKE NEEDS KNOWN. ON RA AND TOLERATING WELL. NO SOB NOTED. NO S/SX OF RESPIRATORY DISTRESS NOTED. ON TELE MONITOR DETECTS SR 1ST DEGREE BBB WITH RATE OF 80. IV ACCESS IN LAC #20G. IV IS INTACT,PATENT, AND FLUSHING WELL. SAFETY PRECAUTIONS IN PLACE: BED IN LOWEST, LOCKED POSITION, SIDERAILS UPx2, AND BRAKES ON. TABLE AND CALL LIGHT WITHIN REACH. WILL CONTINUE TO MONITOR.
[2022-01-02 20:00] VITALS: BP 139/76
[2022-01-02 23:27] LABS: BILIRUBIN,TOTAL 0.8 mg/dL (0.2-1.0); CALCIUM, SERUM 7.4 mg/dL (8.5-10.1); CREATININE 1.3 mg/dL (0.6-1.3); POTASSIUM 5.1 mmol/L (3.5-5.1)
[2022-01-03] VITALS: BP 143/80
[2022-01-03 04:00] VITALS: BP 145/78
[2022-01-03] MEDS: METOPROLOL TARTRATE 50 MG TABLET PO SCH ×3 (05:35→17:06)
[2022-01-03 06:23] LABS: BASOPHILS % (AUTO) 0.3 % (0.0-2.0); EOSINOPHILS % (AUTO) 2.3 % (0.0-6.0); HEMATOCRIT 42 % (33-45); HEMOGLOBIN 13.5 g/dL (11.5-14.8); LYMPHOCYTES # (AUTO) 1.6 K/uL (0.8-4.8); LYMPHOCYTES % (AUTO) 27.7 % (20.0-44.0); MEAN CORPUSCULAR HGB CONC 32 g/dl (31.0-36.0); MEAN CORPUSCULAR VOLUME 85 fL (82-100); MONOCYTES # (AUTO) 0.4 K/uL (0.1-1.30); MONOCYTES % (AUTO) 7.1 % (2.0-12.0); NEUTROPHILS # (AUTO) 3.5 K/uL (1.8-8.9); NEUTROPHILS % (AUTO) 62.6 % (43.0-81.0); PLATELET COUNT (AUTO) 187 K/uL (150-450); RED BLOOD CELL COUNT(AUTO) 4.96 MIL/uL (4.0-5.2); WHITE BLOOD COUNT (AUTO) 5.7 K/uL (4.3-11.0)
[2022-01-03 06:35] LABS: CALCIUM, SERUM 8.7 mg/dL (8.5-10.1); CREATININE 1.2 mg/dL (0.6-1.3); POTASSIUM 4.7 mmol/L (3.5-5.1)
--- NOTE | 2022-01-03 06:43 | NUR ---
RN CLOSING NOTES PT SITTING IN BED, ASLEEP, AWAKENS TO VERBAL STIMULI. AOx3-4, ABLE TO MAKE NEEDS KNOWN. ON RA AND TOLERATING WELL. NO SOB NOTED. NO S/SX OF RESPIRATORY DISTRESS NOTED. ON TELE MONITOR DETECTS SR WITH 1ST DEGREE AV BLOCK WITH RATE OF 60-80. IV ACCESS IN LAC #20G. ALL NEEDS MET. PT KEPT CLEAN AND DRY. PT KEPT NPO EXCEPT MEDS POST MIDNIGHT. IV IS INTACT,PATENT, AND FLUSHING WELL. SAFETY PRECAUTIONS IN PLACE: BED IN LOWEST, LOCKED POSITION, SIDERAILS UPx2, AND BRAKES ON. TABLE AND CALL LIGHT WITHIN REACH. WILL ENDORSE TO ONCOMING SHIFT FOR DONTRELL.
--- NOTE | 2022-01-03 07:13 | NUR ---
RN NOTE PATIENT WENT TO PROCEDURE, WILL REASSESS ONCE PATIENT RETUNR
[2022-01-03] MEDS: PANTOPRAZOLE 40 MG TABLET.DR PO SCH (07:30)
[2022-01-03] MEDS ORDERED: NITROGLYCERIN IN 5 % DEXTROSE 250 ML IV ONE (07:31)
[2022-01-03] MEDS ORDERED: LIDOCAINE HCL/PF 1% 30 ML SDV ONE (07:39)
[2022-01-03] MEDS: ENSURE ENLIVE 237 ML LIQUID (VANILLA) PO SCH ×2 (07:46→16:10)
[2022-01-03] MEDS ORDERED: FENTANYL PF 100MCG/2ML AMPUL ONE (07:51)
[2022-01-03] MEDS ORDERED: MIDAZOLAM HCL 2 MG/2ML VIAL ONE (07:51)
[2022-01-03] MEDS ORDERED: IV NS 0.9% 1,000 ML ONE (07:53)
[2022-01-03] MEDS: FUROSEMIDE 20 MG/2 ML VIAL IV SCH (08:52)
[2022-01-03] MEDS: ESCITALOPRAM OXALATE (10 MG) 10 MG TABLET PO SCH (08:52)
[2022-01-03] MEDS: ASPIRIN 81 MG TAB.CHEW PO SCH (08:52)
[2022-01-03] MEDS: ATORVASTATIN 10 MG TABLET PO SCH (08:52)
--- NOTE | 2022-01-03 09:20 | NUR ---
RN OPENING NOTES RECEIVED RESTING, AWAKE. AOx3-4, ABLE TO MAKE NEEDS KNOWN. ON RA AND TOLERATING WELL. NO SOB NOTED. NO S/SX OF RESPIRATORY DISTRESS NOTED. ON TELE MONITOR . IV ACCESS IN LAC #20G. IV IS INTACT,PATENT, AND FLUSHING WELL. PATIENT HAS TR BAND IN PLACE, 14 CC @ 0822. WILL REMOVE AIR PER PROTOCOL. VITALS WNL. SAFETY PRECAUTIONS IN PLACE: BED IN LOWEST, LOCKED POSITION, SIDERAILS UPx2, AND BRAKES ON. TABLE AND CALL LIGHT WITHIN REACH. WILL CONTINUE TO MONITOR.
[2022-01-03 10:00] VITALS: BP 126/90
--- NOTE | 2022-01-03 11:31 | NUR ---
RN NOTE PATIENT REFUSED METOPROLOL, ASKED TO TAKE NEXT DOSE
[2022-01-03 12:00] VITALS: BP 100/66
[2022-01-03 16:00] VITALS: BP 121/75
--- NOTE | 2022-01-03 18:31 | NUR ---
PUMPER HEAD CLOSING NOTES PATIENT SITTING IN THE CHAIR. PATIENT AWAKE, A/O X4, NO SIGNS OF ACUTE DISTRESS NOTED. PATIENT IS BREATHING EVENLY AND NONLABORED ON ROOM AIR, NO SOB NOTED. DENIES ANY PAIN OR DISCOMFORT. CONTINUE ON TELE MONITOR SHOWING SR. NO SIGNS OF CARDIAC DISTRESS. PPATIENT IS POST CARDIAC PROCEDURE TOLERATED WELL. NO BLEEDING NOTED. IV ACCESS ON LEFT ANTECUBITAL #20G, INTACT AND PATENT, SALINE LOCKED. ALL MEDICATIONS GIVEN ORDERED SAFETY MEASURES MAINTAINED, BED IN LOWEST LOCKED POSITION, SR UP X1, CALL LIGHT PLACED WITHIN EASY REACH. WILL ENDORSE TO NEXT SHIFT.
--- NOTE | 2022-01-03 19:26 | NUR ---
RN OPENING NOTES RECEIVED PT SITTING IN BED, ASLEEP, OPENS EYES TO VERBAL STIMULI. AOx3-4, ABLE TO MAKE NEEDS KNOWN. ON RA AND TOLERATING WELL. NO SOB NOTED. NO S/SX OF RESPIRATORY DISTRESS NOTED. ON TELE MONITOR DETECTS SR 1ST DEGREE AV BLOCK AND RATE OF 60. IV ACCESS IN LAC #20G. IV IS INTACT,PATENT, AND FLUSHING WELL. SAFETY PRECAUTIONS IN PLACE: BED IN LOWEST, LOCKED POSITION, SIDERAILS UPx2, AND BRAKES ON. TABLE AND CALL LIGHT WITHIN REACH. WILL CONTINUE TO MONITOR.
[2022-01-03 20:00] VITALS: BP 116/79
[2022-01-04] VITALS: BP 134/79
[2022-01-04] MEDS: METOPROLOL TARTRATE 50 MG TABLET PO SCH ×4 (00:13→17:35)
[2022-01-04 04:00] VITALS: BP 142/70
[2022-01-04 06:06] LABS: BASOPHILS % (AUTO) 0.1 % (0.0-2.0); EOSINOPHILS % (AUTO) 1.3 % (0.0-6.0); HEMATOCRIT 43 % (33-45); HEMOGLOBIN 13.7 g/dL (11.5-14.8); LYMPHOCYTES # (AUTO) 1.1 K/uL (0.8-4.8); MEAN CORPUSCULAR HGB CONC 32 g/dl (31.0-36.0); MEAN CORPUSCULAR VOLUME 84 fL (82-100); MONOCYTES # (AUTO) 0.3 K/uL (0.1-1.30); MONOCYTES % (AUTO) 6.7 % (2.0-12.0); NEUTROPHILS # (AUTO) 3.3 K/uL (1.8-8.9); NEUTROPHILS % (AUTO) 68.9 % (43.0-81.0); PLATELET COUNT (AUTO) 208 K/uL (150-450); RED BLOOD CELL COUNT(AUTO) 5.07 MIL/uL (4.0-5.2); WHITE BLOOD COUNT (AUTO) 4.8 K/uL (4.3-11.0)
--- NOTE | 2022-01-04 06:46 | NUR ---
RN CLOSING NOTES PT SITTING IN BED WITH FEET DANGLING,ASLEEP,OPENS EYES TO VERBAL STIMULI. AOx3-4, ABLE TO MAKE NEEDS KNOWN. ON RA AND TOLERATING WELL. NO SOB NOTED. NO S/SX OF RESPIRATORY DISTRESS NOTED. ON TELE MONITOR DETECTS SR 1ST DEGREE AV BLOCK AND RATE OF 60. IV ACCESS IN LAC #20G. IV IS INTACT,PATENT, AND FLUSHING WELL. ALL NEEDS MET. PT KEPT CLEAN AND DRY. SAFETY PRECAUTIONS IN PLACE: BED IN LOWEST, LOCKED POSITION, SIDERAILS UPx2, AND BRAKES ON. TABLE AND CALL LIGHT WITHIN REACH. WILL ENDORSE TO ONCOMING SHIFT FOR DONTRELL.
--- NOTE | 2022-01-04 07:21 | NUR ---
RN OPENING NOTES PT SITTING IN BED WITH FEET DANGLING, ASLEEP, OPENS EYES AND VERBALLY RESPONSIVE WHEN SPOKEN TO. PT AOx3 AND ABLE TO MAKE NEEDS KNOWN. ON RA AND TOLERATING WELL. BREATHING EVEN AND UNLABORED. NO S/SX OF RESPIRATORY DISTRESS NOTED. DENIES PAIN AND DISCOMFORT AT THIS TIME. ON TELE MONITOR DETECTS SR 1ST DEGREE AV BLOCK WITH HEART RATE OF 60. IV ACCESS IN LAC #20G. IV IS INTACT, PATENT, AND FLUSHING WELL. SAFETY PRECAUTIONS IN PLACE: BED IN LOWEST AND LOCKED POSITION, SIDERAILS UPx2. TABLE AND CALL LIGHT WITHIN REACH. WILL CONTINUE TO MONITOR
--- NOTE | 2022-01-04 07:59 | NUR ---
TYRE FITTER NOTES PT AWAKE, ALERT AND ORIENTED, SITTING IN HER BED, NO COMPLAINT OF PAIN OR ANY DISCOMFORT, SEEN BY DR. WORLEY, PT INFORMED OF PROCEDURE, CONSENTS GIVEN, PICKED UP BY O.R. STAFF VIA BED IN STABLE CONDITION.
[2022-01-04 08:00] VITALS: BP 117/74
[2022-01-04] MEDS: ENSURE ENLIVE 237 ML LIQUID (VANILLA) PO SCH ×2 (08:00→17:17)
[2022-01-04] MEDS ORDERED: FENTANYL PF 100MCG/2ML AMPUL ONE (08:02)
[2022-01-04] MEDS ORDERED: KETAMINE HCL (500MG/10ML) 50 MG/ML VIAL ONE (08:02)
[2022-01-04] MEDS ORDERED: MIDAZOLAM HCL 2 MG/2ML VIAL ONE (08:02)
[2022-01-04] MEDS ORDERED: LIDOCAINE 1% INJ 50 ML MDV IJ ONE (08:06)
[2022-01-04] MEDS ORDERED: IOHEXOL 240MG/ML 0 ML IV ONE (08:06)
[2022-01-04] MEDS ORDERED: ANESTHESIA TRAY IN PYXIS 1 EA TRAY MC ONE (08:06)
[2022-01-04 08:28] LABS: CALCIUM, SERUM 8.6 mg/dL (8.5-10.1); POTASSIUM 5.2 mmol/L (3.5-5.1)
--- NOTE | 2022-01-04 08:30 | NUR ---
SOFTWARE ENGINEER NOTES PT WAS BROUGHT BACK FROM O.R., PER O.R. STAFF PT REFUSED PROCEDURE, DR. LEE SPOKE WITH PT, PT STATED THAT SHE DOES NOT WANT IT TO BE DONE TODAY, PT IN BED, IN STABLE CONDITION.
[2022-01-04] MEDS: ESCITALOPRAM OXALATE (10 MG) 10 MG TABLET PO SCH (09:21)
[2022-01-04] MEDS: ASPIRIN 81 MG TAB.CHEW PO SCH (09:21)
[2022-01-04] MEDS: ATORVASTATIN 10 MG TABLET PO SCH (09:21)
[2022-01-04] MEDS ORDERED: FUROSEMIDE 40 MG TABLET PO SCH (09:30)
[2022-01-04] MEDS: PANTOPRAZOLE 40 MG TABLET.DR PO SCH (09:35)
[2022-01-04] MEDS ORDERED: ESCI10TA PO (11:07)
[2022-01-04] MEDS ORDERED: METO50TA16 PO (11:07)
[2022-01-04] MEDS ORDERED: Olanzapine PO (11:07)
[2022-01-04] MEDS ORDERED: PANT40TA49 PO (11:07)
[2022-01-04] MEDS ORDERED: FURO40TA5 PO (11:07)
[2022-01-04] MEDS ORDERED: ATOR10TA PO (11:07)
[2022-01-04] MEDS ORDERED: ASPI-1169 PO (11:07)
[2022-01-04 12:00] VITALS: BP 117/73
[2022-01-04 16:00] VITALS: BP 112/69
[2022-01-04 17:35] VITALS: BP 112/69
--- NOTE | 2022-01-04 18:30 | NUR ---
ISO COORDINATOR NOTES PT AWAKE, ALERT AND ORIENTED, SITTING IN BED, DENIES PAIN, NOT IN DISTRESS, CALL LIGHT WITHIN REACH, SEEN BY DR. MYLES TODAY, DISCHARGE ORDER GIVEN, DISCHARGE AND MEDICATION INSTRUCTIONS PROVIDED TO PT, VERBALIZED UNDERSTANDING, FLIGHT ENGINEER PERFORMANCE QUALIFIED SUSAN SPOKE WITH PT'S FAITH BERRIOS, INFORMED OF TRANSFER, SPOKE WITH DEBRA OF [email or web address], STATED THAT THEY WILL HAVE A COMPANY HOSPICE ADMINISTRATOR TO FOLLOW THE PT IN THE NURSING FACILITY TO PROVIDE INSTRUCTIONS FOR THE LIFE VEST, REPORT GIVEN TO MARS JEAN BAPTISTE OF [facility], BELONGINGS ACCOUNTED FOR, PICKED UP BY 3 AMBULANCE PERSONNEL, LEFT VIA GUERNEY IN STABLE CONDITION.
== END 2022-01-04 18:45 | DRG 280 ==
LOC: ER 20:52 → TELE 23:31
PROVIDERS: ADMIT Student in an Organized Health Care Education/Training Program; ATTEND Internal Medicine
PROC: B211YZZ Fluoroscopy of Multiple Coronary Arteries using Other Contrast (ICD-10-PCS; principal; 2022-01-03)
PROC: 4A023N7 Measurement of Cardiac Sampling and Pressure, Left Heart, Percutaneous Approach (ICD-10-PCS; 2022-01-03)
DX: I21.4 Non-ST elevation (NSTEMI) myocardial infarction (principal); E43 Unspecified severe protein-calorie malnutrition; I50.43 Acute on chronic combined systolic (congestive) and diastolic (congestive) heart failure; G93.41 Metabolic encephalopathy; N17.0 Acute kidney failure with tubular necrosis; Z68.41 Body mass index [BMI] 40.0-44.9, adult; E87.1 Hypo-osmolality and hyponatremia; I13.0 Hypertensive heart and chronic kidney disease with heart failure and stage 1 through stage 4 chronic kidney disease, or unspecified chronic kidney disease; E87.6 Hypokalemia; R74.01 Elevation of levels of liver transaminase levels; I49.3 Ventricular premature depolarization; E88.09 Other disorders of plasma-protein metabolism, not elsewhere classified; G47.33 Obstructive sleep apnea (adult) (pediatric); Z20.822 Contact with and (suspected) exposure to COVID-19; E66.01 Morbid (severe) obesity due to excess calories; F32.9 Major depressive disorder, single episode, unspecified; E87.5 Hyperkalemia; I27.20 Pulmonary hypertension, unspecified; F41.9 Anxiety disorder, unspecified; N18.9 Chronic kidney disease, unspecified; F29 Unspecified psychosis not due to a substance or known physiological condition; G31.84 Mild cognitive impairment of uncertain or unknown etiology
CPT/HCPCS: 36415; 70450-TC; 71045-TC; 80048-TC; 80053-TC; 80061-TC; 80076-TC; 82962-TC; 83735-TC; 83880; 84100-TC; 84443-TC; 84484-TC; 85025-TC; 85610-TC; 85730-TC; 87081-TC; 93307-TC; 97116-TC; 97530-TC; A6403; C9803; G0378; G0500; J1644; J1650; J1940; J2250; J3010; J3490; J7030; J7050; Q9966; Q9967

== ENCOUNTER 2022-01-31 10:00 | Outpatient (CLI) | payer MEDICARE, OTHER ==
[~2022-01-31 10:00] MED LIST: ASPI-1169 PO; ATOR10TA PO; ESCI10TA PO; FURO40TA5 PO; METO50TA16 PO; Olanzapine PO; PANT40TA49 PO
[2022-01-31 11:53] LABS: BASOPHILS % (AUTO) 0.4 % (0.0-2.0); EOSINOPHILS % (AUTO) 1.1 % (0.0-6.0); HEMATOCRIT 38 % (33-45); HEMOGLOBIN 12.4 g/dL (11.5-14.8); LYMPHOCYTES # (AUTO) 2.2 K/uL (0.8-4.8); LYMPHOCYTES % (AUTO) 30.3 % (20.0-44.0); MEAN CORPUSCULAR HGB CONC 33 g/dl (31.0-36.0); MEAN CORPUSCULAR VOLUME 83 fL (82-100); MONOCYTES # (AUTO) 0.5 K/uL (0.1-1.30); MONOCYTES % (AUTO) 6.3 % (2.0-12.0); NEUTROPHILS # (AUTO) 4.5 K/uL (1.8-8.9); NEUTROPHILS % (AUTO) 61.9 % (43.0-81.0); PLATELET COUNT (AUTO) 316 K/uL (150-450); RED BLOOD CELL COUNT(AUTO) 4.63 MIL/uL (4.0-5.2); WHITE BLOOD COUNT (AUTO) 7.3 K/uL (4.3-11.0)
== END 2022-01-31 23:59 | disposition home or self-care (01) ==
LOC: LAB 10:00
PROVIDERS: ATTEND Thoracic Surgery (Cardiothoracic Vascular Surgery)
DX: Z01.810 Encounter for preprocedural cardiovascular examination (principal); I25.5 Ischemic cardiomyopathy
CPT/HCPCS: 36415; 80048; 85025; 85730; 93005; 94799; C9803; U0003

== ENCOUNTER 2022-02-04 09:57 | Inpatient (IN) | payer MEDICARE, OTHER ==
[2022-02-04] VITALS (13 sets, daily range): BP systolic 118–137; BP diastolic 59–86
[~2022-02-04] VITALS: Ht 157.5 cm; Wt 90.4 kg
[~2022-02-04 09:57] MED LIST changes: +FENTANYL PF 100MCG/2ML AMPUL ONE; +IOHEXOL 240MG/ML 0 ML IV ONE; +LIDOCAINE HCL/MPF 1% 30 ML VIAL IJ ONE; +MIDAZOLAM HCL 2 MG/2ML VIAL ONE
--- NOTE | 2022-02-04 11:17 | NUR ---
RN NOTES CALLED O.R., SPOKED TO ASHISH AND INFORMED HIM THAT WE'RE UN-ABLE TO INSERT IV ACCESS, HE SAID OK AND THEY WILL JUST INSERT IN THE O.R. TRANSPORTER MUNDO PICKED-UP PT GOING TO SURGERY BED..
--- NOTE | 2022-02-04 11:27 | NUR ---
DS/MS RN NOTES PT ARRIVED TO UNIT AT 1015 VIA WHEELCHAIR ACCOMPANIED BY ADMITTING STAFF AND PT'S BROTHER DENISE. ASSISTED PT TO BED. PT IS A/O X3-4. ABLE TO MAKE NEEDS KNOWN. PT WITH LIFE VEST IN PLACED AND FUNCTIONING. V/S TAKEN, STABLE AND RECORDED. PT C/O MILD SOB, PLACED ON SUPPLEMENTAL 02 VIA N/C @ 2LPM AND VERBALIZED THAT SHE'S OK AFTER. ALL SURGICAL CONSENTS SIGNED BY PT IN FRONT OF HER BROTHER. PRE-OP CHECK LIST DONE. SAFETY MEASURES IMPLEMENTED: BED PLACED IN LOWEST LOCKED POSITION, SR-UP X2 AND CALL LIGHT W/I EASY REACH OF PT.
--- NOTE | 2022-02-04 11:30 | NUR ---
RN NOTES PT BROUGHT BACK TO UNIT JUST NOW, SURGERY MOVED TO 1400 THIS AFTERNOON.
--- NOTE | 2022-02-04 13:38 | NUR ---
RN NOTES PT PICKED-UP GOING TO SURGERY FOR ICD PLACEMENT BY DR WORLEY
[2022-02-04] MEDS ORDERED: MORPHINE SULFATE INJ 2 MG/ML DISP.SYRIN IV PRN (16:00)
[2022-02-04] MEDS ORDERED: SACU1TAB PO (16:39)
[2022-02-04] MEDS ORDERED: ESCI10TA PO (16:39)
--- NOTE | 2022-02-04 16:56 | NUR ---
SURVEY RESEARCH PROFESSOR NOTES PT RETURNED TO UNIT AT 1615 ACCOMPANIED BY Perfecto MRAI RN S/P AICD INSERTION ON UPPER LCW BY DR WORLEY. DRESSING ON ICD INSERTION SITE C/D/I. PT IS AWAKE, A/O X3 AND VERBALLY RESPONSIVE. PT ON 02 VIA N/C @ 2LPM, TOLERATING WELL, BREATHING EVEN AND UNLABORED. IV ACCESS NOTED ON THE RIGHT HAND G#22 INTACT AND PATENT INSERTED IN THE O.R. PT PLACED IN EXTERNAL LIP CUTTER AND SCORER WITH READINGS SHOWING V-PACING, MELY CARDIA, HR 50, NO C/O CARDIAC DISTRESS VOICED AT THIS TIME. SAFETY MEASURES MAINTAINED: BED IN LOWEST LOCKED POSITION, SR-UP X2 AND CALL LIGHT W/I EASY REACH OF PT. WILL CONTINUE TO MONITOR PT.
--- NOTE | 2022-02-04 18:38 | NUR ---
AUDIO VISUAL EQUIPMENT RENTAL CLERK CLOSING NOTES PT IN BED ASLEEP AT THIS TIME, EASILY AROUSABLE. HOB ELEVATED. A/O X3-4. ABLE TO MAKE NEEDS KNOWN. ON 02 VIA N/C AT 2LPM, TOLERATING WELL, BREATHING EVEN AND UNLABORED. DRESSING ON ICD SITE ON LCW C/D/I. ON TELE-MONITOR WITH CURRENT READING OF V-PACING, SB, HR 50, NO, NO C/O CARDIAC DISTRESS VOICED AT THIS TIME. IV ACCESS ON RIGHT HAND G#22 INTACT, PATENT AND FLUSHES WELL. ALL NEEDS AND CARE ATTENDED WELL. SAFETY MEASURES IN PLACE: BED IN LOWEST LOCKED POSITION WITH SR UP X2, CALL LIGHT W/IN REACH OF PT. WILL ENDORSE TO CLINICAL REHAB LIAISON NURSE FOR DONTRELL.
--- NOTE | 2022-02-04 19:30 | NUR ---
DUB ROOM ENGINEER OPENING NOTES RECEIVED PATIENT ON BED; ASLEEP, EASILY AROUSABLE. WITH OXYGEN INHALATION AT 2LPM VIA NASAL CANNULA; TOLERATING WELL. PATIENT IS ALERT AND ORIENTED X3-4. ON TELEMETRY MONITORING WITH CURRENT READING OF V-PACING, SB HR 52. HEAD OF BED ELEVATED. ABLE TO MAKE NEEDS KNOWN. WITH DRESSING ON ICD SITE; C/D/I. WITH IV ACCESS ON RIGHT HAND G#22; INTACT, PATENT AND SALINE LOCKED. SAFETY MEASURES IMPLEMENTED: CALL BUTTON AND TABLE WITHIN EASY REACH, SIDE RAILS UP X2, BED IN LOWEST LOCKED POSITION. WILL CONTINUE PLAN OF CARE.
[2022-02-04 20:45] LABS: BASOPHILS % (AUTO) 0.3 % (0.0-2.0); EOSINOPHILS % (AUTO) 1.4 % (0.0-6.0); HEMATOCRIT 35 % (33-45); LYMPHOCYTES # (AUTO) 1.5 K/uL (0.8-4.8); MEAN CORPUSCULAR HGB CONC 32 g/dl (31.0-36.0); MEAN CORPUSCULAR VOLUME 84 fL (82-100); MONOCYTES # (AUTO) 0.6 K/uL (0.1-1.30); MONOCYTES % (AUTO) 8.4 % (2.0-12.0); NEUTROPHILS # (AUTO) 4.7 K/uL (1.8-8.9); NEUTROPHILS % (AUTO) 67.9 % (43.0-81.0); PLATELET COUNT (AUTO) 216 K/uL (150-450); RED BLOOD CELL COUNT(AUTO) 4.19 MIL/uL (4.0-5.2); WHITE BLOOD COUNT (AUTO) 6.9 K/uL (4.3-11.0)
[2022-02-04] MEDS: METOPROLOL TARTRATE 50 MG TABLET PO SCH (21:49)
[2022-02-05 04:00] VITALS: BP 129/82
[2022-02-05 06:49] LABS: CALCIUM, SERUM 8.9 mg/dL (8.5-10.1); CREATININE 0.9 mg/dL (0.6-1.3); POTASSIUM 3.7 mmol/L (3.5-5.1)
--- NOTE | 2022-02-05 07:00 | NUR ---
OTR REFRIGERATED CDL TRUCK DRIVER CLOSING NOTES PATIENT IS ON BED; ASLEEP, EASILY AROUSABLE. WITH OXYGEN INHALATION AT 2LPM VIA NASAL CANNULA; TOLERATING WELL. PATIENT IS ALERT AND ORIENTED X3-4. ON TELEMETRY MONITORING WITH CURRENT READING OF V-PACING, SR HR 68. HEAD OF BED ELEVATED. ABLE TO MAKE NEEDS KNOWN. WITH DRESSING ON ICD SITE; C/D/I. WITH IV ACCESS ON RIGHT HAND G#22; INTACT, PATENT AND SALINE LOCKED. SAFETY MEASURES IMPLEMENTED. ENDORSED TO MORNING SHIFT FOR CONTINUITY OF CARE.
[2022-02-05] MEDS ORDERED: PANTOPRAZOLE 40 MG TABLET.DR PO SCH (07:30)
--- NOTE | 2022-02-05 07:30 | NUR ---
DETENTION ATTENDANT OPENING NOTES RECEIVED PATIENT ON BED; ASLEEP, EASILY AWAKEN BY VERBAL AND TACTILE STIMULI. WITH OXYGEN INHALATION AT 2LPM VIA NASAL CANNULA; TOLERATING WELL. PATIENT IS ALERT AND ORIENTED X3-4. ON TELEMETRY MONITORING WITH CURRENT READING OF SR HR AT 68 HEAD OF BED ELEVATED. WITH DRESSING ON ICD SITE; C/D/I. WITH IV ACCESS ON RIGHT HAND G#22; INTACT, PATENT AND SALINE LOCKED. SAFETY MEASURES IMPLEMENTED: CALL BUTTON AND TABLE WITHIN EASY REACH, SIDE RAILS UP X2, BED IN LOWEST LOCKED POSITION. WILL CONTINUE TO MONITOR PATIENT ACCORDINGLY.
[2022-02-05 08:00] VITALS: BP 125/82
[2022-02-05] MEDS: METOPROLOL TARTRATE 50 MG TABLET PO SCH (08:28)
[2022-02-05] MEDS ORDERED: ATORVASTATIN 10 MG TABLET PO SCH (09:00)
[2022-02-05] MEDS ORDERED: FUROSEMIDE 40 MG TABLET PO SCH (09:00)
[2022-02-05] MEDS ORDERED: ASPIRIN 81 MG TAB.CHEW PO SCH (09:00)
[2022-02-05] MEDS ORDERED: ESCITALOPRAM OXALATE (10 MG) 10 MG TABLET PO SCH (09:00)
--- NOTE | 2022-02-05 14:35 | NUR ---
RN NOTES PATIENT FOR DISCHARGE TO [facility], REPORT GIVEN TO ITA CANNON. PATIENT WILL BE DISCHARGE WITH LIFE [facility] PART OF HER BELONGINGS.
[2022-02-05 16:00] VITALS: BP 140/63
--- NOTE | 2022-02-05 17:42 | NUR ---
POUND KEEPER NOTES DISCHARGE PATIENT IN STABLE CONDITION, VITAL SIGNS WERE WITHIN NORMAL LIMITS. DISCHARGE INSTRUCTIONS AND FOLLOW UP DISCUSSED WITH PATIENT, PATIENT VERBALIZED UNDERSTANDING. REPORT WAS GIVEN TO [facility] RN, MS CANNON. IV ACCESS REMOVED, COVERED WITH GAUZE NO S/SX OF BLEEDING NOTED. BELONGINGS ACCOUNTED AND SIGNED FOR. LIFE VEST HANDED TO EMT, INSTRUCTED AND ADVISED THAT FACILITY IS AWARE THAT PATIENT IS BEING DISCHARGE WITH THE LIFE VEST PART OF HER BELONGINGS. FACILITY WILL TAKE CARE RETURNING THE LIFE VEST TO COMPANY. LEFT UNIT IN STABLE CONDITION, NO INJURY NOTED. MD AND CHARGE NURSE AWARE OF DISCHARGE.
== END 2022-02-05 17:40 | DRG 226 ==
LOC: DS 09:57 → MED 10:13 → TELE 19:32 → MED 02-05 14:10
PROVIDERS: ADMIT Internal Medicine; ATTEND Internal Medicine
PROC: 0JH608Z Insertion of Defibrillator Generator into Chest Subcutaneous Tissue and Fascia, Open Approach (ICD-10-PCS; principal; 2022-02-04)
PROC: 02HK0KZ Insertion of Defibrillator Lead into Right Ventricle, Open Approach (ICD-10-PCS; 2022-02-04)
DX: I42.9 Cardiomyopathy, unspecified (principal); E43 Unspecified severe protein-calorie malnutrition; I11.0 Hypertensive heart disease with heart failure; I25.10 Atherosclerotic heart disease of native coronary artery without angina pectoris; I50.9 Heart failure, unspecified; E66.9 Obesity, unspecified; E88.09 Other disorders of plasma-protein metabolism, not elsewhere classified; G31.84 Mild cognitive impairment of uncertain or unknown etiology; F32.9 Major depressive disorder, single episode, unspecified; I25.2 Old myocardial infarction; Z68.36 Body mass index [BMI] 36.0-36.9, adult
CPT/HCPCS: 36415; 71045-TC; 80048-TC; 85025-TC; 87081-TC; C1722; G0378; J2250; J2704; J3010; J3490; J7030; Q9966

== ENCOUNTER 2022-05-01 07:43 | Inpatient (IN) | payer MEDICARE, OTHER ==
[~2022-05-01] VITALS: Ht 160 cm; Wt 88.0 kg
[~2022-05-01 07:43] MED LIST changes: -FENTANYL PF 100MCG/2ML AMPUL ONE; -IOHEXOL 240MG/ML 0 ML IV ONE; -LIDOCAINE HCL/MPF 1% 30 ML VIAL IJ ONE; -MIDAZOLAM HCL 2 MG/2ML VIAL ONE; -Olanzapine PO; +SACU1TAB PO
[2022-05-01 08:23] LABS: BASOPHILS % (AUTO) 0.3 % (0.0-2.0); EOSINOPHILS % (AUTO) 1.1 % (0.0-6.0); HEMATOCRIT 35 % (33-45); HEMOGLOBIN 11.4 g/dL (11.5-14.8); LYMPHOCYTES # (AUTO) 1.3 K/uL (0.8-4.8); LYMPHOCYTES % (AUTO) 12.7 % (20.0-44.0); MEAN CORPUSCULAR HGB CONC 33 g/dl (31.0-36.0); MEAN CORPUSCULAR VOLUME 83 fL (82-100); MONOCYTES # (AUTO) 0.4 K/uL (0.1-1.30); MONOCYTES % (AUTO) 4.4 % (2.0-12.0); NEUTROPHILS # (AUTO) 8.1 K/uL (1.8-8.9); NEUTROPHILS % (AUTO) 81.5 % (43.0-81.0); PLATELET COUNT (AUTO) 186 K/uL (150-450); RED BLOOD CELL COUNT(AUTO) 4.19 MIL/uL (4.0-5.2)
[2022-05-01 08:34] LABS: CARBON DIOXIDE 22 mmol/L (21-32); CHLORIDE 105 mmol/L (98-107); CREATININE 0.9 mg/dL (0.6-1.3); GLUCOSE 133 mg/dL (74-106); POTASSIUM 4.3 mmol/L (3.5-5.1); SODIUM SERUM 137 mmol/L (136-145); UREA NITROGEN, BLOOD 18 mg/dL (7-18)
--- NOTE | 2022-05-01 08:38 | NUR ---
MOVE SHEET SUBMITTED.
--- NOTE | 2022-05-01 08:42 | NUR ---
COVID ANTIGEN AND PCR SWABS DONE AND SENT TO LAB
--- NOTE | 2022-05-01 08:45 | NUR ---
CONTACT PRINTER DRY FILM AT BEDSIDE FOR XRAY
[2022-05-01 08:46] LABS: ALANINE AMINOTRANSFERASE 22 U/L (12-78); ALBUMIN 3.3 g/dL (3.4-5.0); ALKALINE PHOSPHATASE 136 U/L (46-116); ASPARTATE AMINOTRANSFERASE 72 U/L (15-37); BILIRUBIN,DIRECT 0.2 mg/dL (0.0-0.2); BILIRUBIN,TOTAL 0.5 mg/dL (0.2-1.0); TOTAL PROTEIN, SERUM 8.9 g/dL (6.4-8.2)
--- NOTE | 2022-05-01 08:48 | NUR ---
AMBULATED TO THE RESTROOM WITH STEADY GAIT
--- NOTE | 2022-05-01 08:57 | NUR ---
[facility] CALLED BUILDING CONTRACTOR PAGED.
[2022-05-01] MEDS ORDERED: FUROSEMIDE 20 MG/2 ML VIAL ONE (08:59)
[2022-05-01] MEDS ORDERED: ENOXAPARIN SODIUM 80 MG/0.8 ML DISP.SYRIN SQ ONE ×2 (08:59→09:00)
[2022-05-01] MEDS ORDERED: SACU1TAB PO (09:00)
[2022-05-01] MEDS ORDERED: ASPIRIN 325 MG TABLET ONE (09:00)
[2022-05-01] MEDS ORDERED: ASPI-1169 PO (09:00)
[2022-05-01] MEDS ORDERED: FUROSEMIDE 20 MG/2 ML VIAL IV ONE (09:00)
[2022-05-01] MEDS ORDERED: METO25TA20 PO (09:00)
[2022-05-01] MEDS ORDERED: ATOR10TA PO (09:00)
[2022-05-01] MEDS ORDERED: ACET-868 PO (09:00)
[2022-05-01] MEDS ORDERED: PANT40TA2 PO (09:00)
[2022-05-01] MEDS ORDERED: ASPIRIN 325 MG TABLET PO ONE (09:00)
[2022-05-01] MEDS ORDERED: FURO-144 PO (09:00)
[2022-05-01] MEDS ORDERED: ACETAMINOPHEN 325 MG TABLET PO PRN (09:30)
[2022-05-01] MEDS ORDERED: NITROGLYCERIN 0.4 MG/TAB BOTTLE SL PRN (09:30)
--- NOTE | 2022-05-01 10:50 | NUR ---
TROPRONIN REDRAW 165, DR LITTLE AND ZAKIYA CARDONA AWARE
[2022-05-01] MEDS ORDERED: PANTOPRAZOLE 40 MG TABLET.DR PO ONE (12:15)
[2022-05-01] MEDS ORDERED: ASPIRIN EC 81 MG TABLET.DR PO ONE (12:15)
[2022-05-01] MEDS ORDERED: POTASSIUM CHLORIDE 10 MEQ TABLET.SA ONE (12:15)
[2022-05-01] MEDS ORDERED: FUROSEMIDE 40 MG/4 ML VIAL ONE (12:15)
[2022-05-01] MEDS ORDERED: ESCITALOPRAM OXALATE (10 MG) 10 MG TABLET ONE (12:15)
[2022-05-01] MEDS: ASPIRIN 81 MG TAB.CHEW PO SCH ×2 (12:24→12:34)
[2022-05-01] MEDS: PANTOPRAZOLE 40 MG TABLET.DR PO SCH (12:24)
[2022-05-01] MEDS: POTASSIUM CHLORIDE 20 MEQ TAB.PRT.SR PO SCH ×2 (12:24→13:34)
[2022-05-01] MEDS: ESCITALOPRAM OXALATE (10 MG) 10 MG TABLET PO SCH (12:24)
[2022-05-01] MEDS: FUROSEMIDE 40 MG/4 ML VIAL IV SCH ×3 (12:24→17:54)
--- NOTE | 2022-05-01 12:42 | NUR ---
AMBULATED TO THE RESTROOM WITH STEADY GAIT
[2022-05-01] MEDS ORDERED: POTASSIUM CHLORIDE 20 MEQ TAB.PRT.SR PO ONE (13:31)
--- NOTE | 2022-05-01 14:34 | NUR ---
GOING TO 118.2
--- NOTE | 2022-05-01 14:46 | NUR ---
REPORT GIVEN TO DANICA JEAN BAPTISTE. PT AWAITING TRANSFER TO FLOOR.
--- NOTE | 2022-05-01 15:00 | NUR ---
DATA SPECIALIST NOTE PATIENT ARRIVED VIA GURNEY AWAKE AND ALERT A&OX4 AND AMBULATORY. ALL VSS. PATIENT SATTING AT 97% ON 2L NC. SR. VOIDING VIA BEDSIDE COMMODE. DIET CARDIAC LOW FAT. STRICT I&O. BELONGING LIST CHECKED. SKIN INTACT. ALL SAFETY FALL PRECAUTIONS IN PLACE BED IN LOWEST POSITION, SIDE RAILS UP, BED LOCK ON , BED ALARM ON, CALL LIGHT WITHIN REACH, WILL CONTINUE TO MONITOR.
[2022-05-01] MEDS ORDERED: ENOXAPARIN SODIUM 80 MG/0.8 ML DISP.SYRIN SQ SCH (17:00)
[2022-05-01] MEDS: METOPROLOL TARTRATE 50 MG TABLET PO SCH (17:53)
--- NOTE | 2022-05-01 19:10 | NUR ---
Ending report patient stable all vss care endorsed to shift production supervisor.
--- NOTE | 2022-05-01 19:35 | NUR ---
RN OPENING NOTES: PATIENT RECEIVED IN BED AWAKE, ALERT/ORIENTED X4 AND VERBALLY RESPONSIVE. ON 2L/MIN VIA N/C AND PT TOLERATED WELL. BREATHING EVEN AND UNLABORED. IV ACCESS ON RAC#20G INTACT AND PATENT. NO S/S OF INFILTRATIONS. NO C/O PAIN OR DISCOMFORT. NO ACUTE DISTRESS. ALL SAFETY MEASURES IN PLACE. BED IN LOWEST POSITION AND LOCKED. SIDE RAILS UP X2, PLACE CALL LIGHT WITH IN REACH. WILL CONTINUE TO MONITOR
[2022-05-01 20:00] VITALS: BP 111/57
--- NOTE | 2022-05-01 22:00 | NUR ---
RN NOTES: PT'S FAITH EPSTEIN CALLED, . IN CASE OF ANY EMERGENCY, SHE WANTS TO BE INFORM.
[2022-05-02] VITALS: BP 141/80
[2022-05-02 04:00] VITALS: BP 145/80
--- NOTE | 2022-05-02 06:40 | NUR ---
RN CLOSING NOTES: PATIENT IN BED AWAKE, ALERT/ORIENTED X4 AND VERBALLY RESPONSIVE. ON 2L/MIN VIA N/C AND PT TOLERATED WELL. O2 SAT 98%. BREATHING EVEN AND UNLABORED. IV ACCESS ON RAC#20G INTACT AND PATENT. NO S/S OF INFILTRATIONS. NO C/O PAIN OR DISCOMFORT. NO ACUTE DISTRESS. PT IS AMBULATORY TO THE BATHROOM WITH STEADY GAIT. ALL SAFETY MEASURES IN PLACE. BED IN LOWEST POSITION AND LOCKED. SIDE RAILS UP X2, PLACE CALL LIGHT WITH IN REACH. WILL ENDORSE TO MORNING SHIFT NURSE.
[2022-05-02 06:43] LABS: BASOPHILS % (AUTO) 0.1 % (0.0-2.0); HEMATOCRIT 32 % (33-45); HEMOGLOBIN 10.6 g/dL (11.5-14.8); LYMPHOCYTES # (AUTO) 1.3 K/uL (0.8-4.8); LYMPHOCYTES % (AUTO) 26.2 % (20.0-44.0); MEAN CORPUSCULAR HGB CONC 33 g/dl (31.0-36.0); MEAN CORPUSCULAR VOLUME 84 fL (82-100); MONOCYTES # (AUTO) 0.5 K/uL (0.1-1.30); MONOCYTES % (AUTO) 10.1 % (2.0-12.0); NEUTROPHILS # (AUTO) 2.9 K/uL (1.8-8.9); NEUTROPHILS % (AUTO) 59.6 % (43.0-81.0); PLATELET COUNT (AUTO) 135 K/uL (150-450); RED BLOOD CELL COUNT(AUTO) 3.78 MIL/uL (4.0-5.2); WHITE BLOOD COUNT (AUTO) 4.9 K/uL (4.3-11.0)
[2022-05-02 07:24] LABS: THYROID STIMULATING HORMONE 1.108 uIU/mL (0.358-3.74)
--- NOTE | 2022-05-02 07:25 | NUR ---
RE OPENING NOTE, PATIENT AWAKE AND ALERT A&OX4, ALL VSS. PATIENT SATTING AT 98% ON 2L NC. VOIDING IN TOILET. IV RAC #20G PATENT, INTACT, AND FLUSHED. ALL SAFETY FALL PRECAUTIONS IN PLACE BED IN LOWEST POSITION, BED LOCK ON, BED ALARM ON, CALL LIGHT WITHIN REACH. WILL CONTINUE TO MONITOR.
[2022-05-02 08:00] VITALS: BP 138/62
[2022-05-02] MEDS: PANTOPRAZOLE 40 MG TABLET.DR PO SCH (08:21)
[2022-05-02 08:22] LABS: ALBUMIN 2.9 g/dL (3.4-5.0); CALCIUM, SERUM 8.7 mg/dL (8.5-10.1); CREATININE 0.9 mg/dL (0.6-1.3); MAGNESIUM 2.1 mg/dL (1.8-2.4); TOTAL PROTEIN, SERUM 7.9 g/dL (6.4-8.2)
[2022-05-02] MEDS: ESCITALOPRAM OXALATE (10 MG) 10 MG TABLET PO SCH (08:22)
[2022-05-02] MEDS: METOPROLOL TARTRATE 50 MG TABLET PO SCH (08:22)
[2022-05-02] MEDS: ASPIRIN 81 MG TAB.CHEW PO SCH (08:22)
[2022-05-02] MEDS ORDERED: ENTRESTO PO SCH (09:00)
[2022-05-02] MEDS ORDERED: ENOXAPARIN SODIUM 40 MG/0.4 ML DISP.SYRIN SQ SCH (09:00)
[2022-05-02] MEDS ORDERED: FUROSEMIDE 40 MG/4 ML VIAL IV SCH (09:00)
[2022-05-02] MEDS ORDERED: ASPIRIN 81 MG TAB.CHEW PO SCH (09:00)
--- NOTE | 2022-05-02 10:00 | NUR ---
seen by EXPERIMENTAL TECHNICIAN and exam to patient at this time
[2022-05-02 12:00] VITALS: BP 102/59
--- NOTE | 2022-05-02 14:00 | NUR ---
hep lock discontinued and no signs of redness or swelling noted
--- NOTE | 2022-05-02 16:18 | NUR ---
patient discharged to home with all belongings accompanied by ambulance all discharge instructions given by primary nurse and will follow up by PMD
== END 2022-05-02 16:07 | disposition home health service (06) | DRG 280 ==
LOC: ER 07:44 → TRANSITION 11:27 → TELE1 14:52
PROVIDERS: ADMIT Registered Nurse; ATTEND Registered Nurse
DX: I11.0 Hypertensive heart disease with heart failure (principal); I21.A1 Myocardial infarction type 2; I50.23 Acute on chronic systolic (congestive) heart failure; J96.01 Acute respiratory failure with hypoxia; Z20.822 Contact with and (suspected) exposure to COVID-19; I25.2 Old myocardial infarction; Z95.810 Presence of automatic (implantable) cardiac defibrillator; Z90.710 Acquired absence of both cervix and uterus; Z79.82 Long term (current) use of aspirin; Z79.899 Other long term (current) drug therapy; I42.9 Cardiomyopathy, unspecified; E66.9 Obesity, unspecified; Z68.34 Body mass index [BMI] 34.0-34.9, adult; Z91.19 Patient's noncompliance with other medical treatment and regimen; F17.200 Nicotine dependence, unspecified, uncomplicated
CPT/HCPCS: 36415; 71045-TC; 80048-TC; 80053-TC; 80076-TC; 83605-TC; 83735-TC; 83880; 84100-TC; 84443-TC; 84484-TC; 85025-TC; 87040-TC; 87081-TC; 93307-TC; 94799-TC; C9803; G0378; J1650; J1940; U0003

== ENCOUNTER 2024-10-14 11:01 | Inpatient (IN) | payer OTHER ==
[~2024-10-14] VITALS: Ht 162.6 cm; Wt 92.5 kg
[~2024-10-14 11:01] MED LIST changes: +ACET-868 PO; +FURO-144 PO; -FURO40TA5 PO; +METO25TA20 PO; -METO50TA16 PO; +PANT40TA2 PO; -PANT40TA49 PO
[2024-10-14 12:41] LABS: CARBON DIOXIDE 28 mmol/L (21-32); CHLORIDE 104 mmol/L (98-107); CREATININE 1.1 mg/dL (0.6-1.3); GLUCOSE 84 mg/dL (74-106); POTASSIUM 3.9 mmol/L (3.5-5.1); SODIUM SERUM 136 mmol/L (136-145); UREA NITROGEN, BLOOD 14 mg/dL (7-18)
[2024-10-14 12:45] LABS: BASOPHILS % (AUTO) 0.3 % (0.0-2.0); EOSINOPHILS # (AUTO) 0.2 K/uL (0.0-0.7); EOSINOPHILS % (AUTO) 3.4 % (0.0-6.0); HEMATOCRIT 37 % (33-45); HEMOGLOBIN 12.3 g/dL (11.5-14.8); LYMPHOCYTES # (AUTO) 1.2 K/uL (0.8-4.8); LYMPHOCYTES % (AUTO) 24.1 % (20.0-44.0); MEAN CORPUSCULAR HEMOGLOBIN 29 PG (26.0-33.0); MEAN CORPUSCULAR HGB CONC 33 g/dl (31.0-36.0); MEAN CORPUSCULAR VOLUME 87 fL (82-100); MONOCYTES # (AUTO) 0.4 K/uL (0.1-1.30); MONOCYTES % (AUTO) 7.2 % (2.0-12.0); NEUTROPHILS # (AUTO) 3.2 K/uL (1.8-8.9); PLATELET COUNT (AUTO) 202 K/uL (150-450); RED BLOOD CELL COUNT(AUTO) 4.26 MIL/uL (4.0-5.2); RED CELL DISTRIBUTION WIDTH 15.2 % (11.5-15.0); WHITE BLOOD COUNT (AUTO) 4.9 K/uL (4.3-11.0)
[2024-10-14 12:58] LABS: ALANINE AMINOTRANSFERASE 21 U/L (12-78); ALBUMIN 3.1 g/dL (3.4-5.0); ALKALINE PHOSPHATASE 121 U/L (46-116); ASPARTATE AMINOTRANSFERASE 21 U/L (15-37); BILIRUBIN,DIRECT 0.1 mg/dL (0.0-0.2); BILIRUBIN,TOTAL 0.6 mg/dL (0.2-1.0); TOTAL PROTEIN, SERUM 8.7 g/dL (6.4-8.2)
[2024-10-14 13:06] LABS: LACTIC ACID 1.3 mmol/L (0.4-2.0)
[2024-10-14] MEDS ORDERED: ASPIRIN 325 MG TABLET ONE (14:02)
[2024-10-14] MEDS: ASPIRIN 325 MG TABLET PO ONE (14:05)
[2024-10-14] MEDS ORDERED: MORPHINE SULFATE INJ 2 MG/ML DISP.SYRIN IV PRN (14:30)
[2024-10-14] MEDS ORDERED: ACETAMINOPHEN 325 MG TABLET PO PRN (14:30)
[2024-10-14] MEDS ORDERED: hydrALAZINE HCL IV 20 MG VIAL IV PRN (14:30)
[2024-10-14] MEDS ORDERED: ONDANSETRON HCL/PF 4 MG/2 ML VIAL IVP PRN (14:30)
[2024-10-14] MEDS ORDERED: FUROSEMIDE 20 MG TABLET PO SCH (17:00)
[2024-10-14 17:19] VITALS: BP 143/111; TEMP 97.5; O2SAT 96
[2024-10-14] MEDS: METOPROLOL TARTRATE 25 MG TABLET PO SCH (17:57)
[2024-10-14 20:00] VITALS: BP 94/80; TEMP 98.2; O2SAT 96
[2024-10-14 20:43] VITALS: BP 94/80; TEMP 98.2; O2SAT 96
[2024-10-14] MEDS: HEPARIN SODIUM, PORCINE 5000 UNITS/1 ML VIAL SQ SCH (20:52)
[2024-10-14 21:16] VITALS: BP 140/90; TEMP 98.2; O2SAT 96
[2024-10-14] MEDS: NYSTATIN CREAM 15 GM TUBE TP SCH (21:25)
[2024-10-15] VITALS (8 sets, daily range): BP systolic 104–150; BP diastolic 77–98; TEMP 98.1–98.6; O2SAT 93–99
[2024-10-15 07:18] LABS: BASOPHILS % (AUTO) 0.3 % (0.0-2.0); EOSINOPHILS # (AUTO) 0.2 K/uL (0.0-0.7); EOSINOPHILS % (AUTO) 4.7 % (0.0-6.0); HEMATOCRIT 33 % (33-45); HEMOGLOBIN 11.3 g/dL (11.5-14.8); LYMPHOCYTES # (AUTO) 1.1 K/uL (0.8-4.8); LYMPHOCYTES % (AUTO) 24.4 % (20.0-44.0); MEAN CORPUSCULAR HEMOGLOBIN 29 PG (26.0-33.0); MEAN CORPUSCULAR HGB CONC 34 g/dl (31.0-36.0); MEAN CORPUSCULAR VOLUME 86 fL (82-100); MONOCYTES # (AUTO) 0.4 K/uL (0.1-1.30); MONOCYTES % (AUTO) 8.3 % (2.0-12.0); NEUTROPHILS # (AUTO) 2.9 K/uL (1.8-8.9); NEUTROPHILS % (AUTO) 62.3 % (43.0-81.0); PLATELET COUNT (AUTO) 179 K/uL (150-450); RED BLOOD CELL COUNT(AUTO) 3.89 MIL/uL (4.0-5.2); RED CELL DISTRIBUTION WIDTH 15.2 % (11.5-15.0); WHITE BLOOD COUNT (AUTO) 4.6 K/uL (4.3-11.0)
[2024-10-15 08:11] LABS: ALBUMIN 2.7 g/dL (3.4-5.0); BILIRUBIN,TOTAL 1.1 mg/dL (0.2-1.0); CALCIUM, SERUM 8.9 mg/dL (8.5-10.1); CREATININE 1.2 mg/dL (0.6-1.3); MAGNESIUM 1.9 mg/dL (1.8-2.4); PHOSPHORUS 3.6 mg/dL (2.5-4.9); POTASSIUM 4.5 mmol/L (3.5-5.1); TOTAL PROTEIN, SERUM 8.1 g/dL (6.4-8.2)
[2024-10-15] MEDS: FUROSEMIDE 20 MG TABLET PO SCH (08:34)
[2024-10-16] VITALS: BP 139/83; TEMP 98.2; O2SAT 96
[2024-10-16 04:00] VITALS: BP 142/70; TEMP 98.4; O2SAT 96
[2024-10-16] MEDS ORDERED: METO25TA20 PO (08:08)
[2024-10-16] MEDS ORDERED: SACU1TAB PO (08:08)
[2024-10-16] MEDS ORDERED: DAPA10TA PO (08:08)
[2024-10-16] MEDS ORDERED: NYST15CR TP (08:08)
[2024-10-16] MEDS ORDERED: FURO-145 PO (08:08)
[2024-10-16 08:21] VITALS: BP 145/79
== END 2024-10-16 12:00 | disposition home health service (06) | DRG 280 ==
LOC: ER 11:15 → TELE 15:58
PROVIDERS: ADMIT Internal Medicine; ATTEND Internal Medicine
DX: I11.0 Hypertensive heart disease with heart failure (principal); I50.23 Acute on chronic systolic (congestive) heart failure; I21.A1 Myocardial infarction type 2; D84.9 Immunodeficiency, unspecified; E44.0 Moderate protein-calorie malnutrition; I42.8 Other cardiomyopathies; I25.10 Atherosclerotic heart disease of native coronary artery without angina pectoris; Z95.810 Presence of automatic (implantable) cardiac defibrillator; B35.4 Tinea corporis; D64.9 Anemia, unspecified; E11.9 Type 2 diabetes mellitus without complications; E78.5 Hyperlipidemia, unspecified; I25.2 Old myocardial infarction; L30.9 Dermatitis, unspecified; Z90.710 Acquired absence of both cervix and uterus; Z91.148 Patient's other noncompliance with medication regimen for other reason
CPT/HCPCS: 36415; 71045-TC; 80048-TC; 80053-TC; 80076-TC; 83605-TC; 83735-TC; 84100-TC; 84484-TC; 85025-TC; 87040-TC; 93307-TC; G0378; J1644

== ENCOUNTER 2024-10-25 11:52 | Emergency (ER) | payer OTHER ==
[~2024-10-25] VITALS: Ht 162.6 cm; Wt 95.3 kg
[~2024-10-25 11:52] MED LIST changes: -ACET-868 PO; -ASPI-1169 PO; -ATOR10TA PO; +DAPA10TA PO; -ESCI10TA PO; -FURO-144 PO; +FURO-145 PO; +NYST15CR TP; -PANT40TA2 PO
[2024-10-25 12:46] LABS: BASOPHILS % (AUTO) 0.5 % (0.0-2.0); EOSINOPHILS # (AUTO) 0.1 K/uL (0.0-0.7); EOSINOPHILS % (AUTO) 1.9 % (0.0-6.0); HEMATOCRIT 39 % (33-45); HEMOGLOBIN 12.9 g/dL (11.5-14.8); LYMPHOCYTES # (AUTO) 1.2 K/uL (0.8-4.8); LYMPHOCYTES % (AUTO) 24.5 % (20.0-44.0); MEAN CORPUSCULAR HEMOGLOBIN 29 PG (26.0-33.0); MEAN CORPUSCULAR HGB CONC 33 g/dl (31.0-36.0); MEAN CORPUSCULAR VOLUME 88 fL (82-100); MONOCYTES # (AUTO) 0.3 K/uL (0.1-1.30); MONOCYTES % (AUTO) 6.2 % (2.0-12.0); NEUTROPHILS # (AUTO) 3.3 K/uL (1.8-8.9); NEUTROPHILS % (AUTO) 66.9 % (43.0-81.0); PLATELET COUNT (AUTO) 232 K/uL (150-450); RED BLOOD CELL COUNT(AUTO) 4.48 MIL/uL (4.0-5.2); RED CELL DISTRIBUTION WIDTH 15.1 % (11.5-15.0); WHITE BLOOD COUNT (AUTO) 4.9 K/uL (4.3-11.0)
[2024-10-25 12:59] LABS: CALCIUM, SERUM 8.8 mg/dL (8.5-10.1); CREATININE 1.2 mg/dL (0.6-1.3); POTASSIUM 4.2 mmol/L (3.5-5.1)
[2024-10-25 17:15] VITALS: BP 115/72; TEMP 98.9; O2SAT 95
== END 2024-10-25 17:17 | disposition home or self-care (01) ==
LOC: ER 11:55
DX: R51.9 Headache, unspecified (principal); E11.9 Type 2 diabetes mellitus without complications; F17.200 Nicotine dependence, unspecified, uncomplicated; I10 Essential (primary) hypertension; I25.2 Old myocardial infarction; Z79.84 Long term (current) use of oral hypoglycemic drugs; Z79.899 Other long term (current) drug therapy; Z90.710 Acquired absence of both cervix and uterus; Z60.2 Problems related to living alone
CPT/HCPCS: 36415; 70450-TC; 80048-TC; 85025-TC

== ENCOUNTER 2024-11-27 14:52 | Emergency (ER) | payer OTHER ==
[~2024-11-27] VITALS: Ht 162.6 cm; Wt 81.6 kg
[2024-11-27] MEDS: METOCLOPRAMIDE HCL 10 MG/2 ML VIAL IV ONE (15:30)
[2024-11-27] MEDS: IV NS 0.9% 250 ML BAG IV ONE (15:30)
[2024-11-27] MEDS ORDERED: METOCLOPRAMIDE HCL 10 MG/2 ML VIAL ONE (15:49)
[2024-11-27] MEDS ORDERED: ACETAMINOPHEN ES 500 MG TABLET ONE (15:49)
[2024-11-27] MEDS: ACETAMINOPHEN ES 500 MG TABLET PO ONE (16:09)
[2024-11-27] MEDS: KETOROLAC TROMETHAMINE 15 MG/ML VIAL IV ONE (17:44)
[2024-11-27] MEDS ORDERED: KETOROLAC TROMETHAMINE 15 MG/ML VIAL ONE (17:44)
[2024-11-27] MEDS ORDERED: ACET-2030 PO (17:56)
[2024-11-27 18:41] VITALS: BP 119/79; TEMP 98.1; O2SAT 99
== END 2024-11-27 18:45 | disposition home or self-care (01) ==
LOC: ER 14:55
DX: R51.9 Headache, unspecified (principal); E11.9 Type 2 diabetes mellitus without complications; F17.200 Nicotine dependence, unspecified, uncomplicated; I11.0 Hypertensive heart disease with heart failure; I50.9 Heart failure, unspecified; I25.2 Old myocardial infarction; Z79.84 Long term (current) use of oral hypoglycemic drugs; Z79.899 Other long term (current) drug therapy; Z90.710 Acquired absence of both cervix and uterus; Z95.810 Presence of automatic (implantable) cardiac defibrillator
CPT/HCPCS: 99284; 96374; 96361; 96375; J1885; J2765